=== PATIENT | female | born 1950 | race Caucasian/White ===

== ENCOUNTER 2020-03-05 10:32 | Outpatient (CLI) | payer MEDICARE, SELFPAY ==
[2020-03-05 11:03] LABS: INR 3.4
== END 2020-03-05 10:33 | disposition home or self-care (01) ==
PROVIDERS: PCP Physician Assistant; Visit Provider Physician Assistant
DX: I63.9 Cerebral infarction, unspecified (principal)
CPT/HCPCS: 36415; 85610

== ENCOUNTER 2020-05-02 15:09 | Emergency (ER) | payer MEDICARE, SELFPAY ==
[2020-05-02 15:40] VITALS: BP 152/91; PULSE 73; RESP 18; TEMP 37; O2SAT 90
--- NOTE | 2020-05-02 16:10 | ED.FEMALEGU ---
HPI - Female Genitourinary General Chief complaint: Urogenital-Female Stated complaint: Blood in urine Source: patient Mode of arrival: ambulatory Limitations: no limitations History of Present Illness HPI Narrative: 4 days ago pt noticed blood in her urine. She had been calling her pcp office, but had been unsucessful in reaching them. Yesterday she passed 2 dime size blood clots. She has no pain, no fevers, no discomfort no nausea. no dysuria, or other urinary sxs. Pt states it is painless. Onset (ago): day(s) Urinary symptoms: Hematuria Exacerbating factors: none Relieving factors: none Treatment prior to arrival: none Related Data Home Medications Medication Instructions Recorded Confirmed acetaminophen-codeine 1 tablet PO Q6-12H PRN 05/02/20 05/02/20 atenolol 25 mg PO DAILY 05/02/20 05/02/20 gabapentin 300 mg PO TID 05/02/20 05/02/20 montelukast 10 mg PO DAILY 05/02/20 05/02/20 omeprazole 20 mg PO DAILY 05/02/20 05/02/20 pravastatin 80 mg PO HS 05/02/20 05/02/20 warfarin 3.5 mg PO DAILY 05/02/20 05/02/20 Allergies Allergy/AdvReac Type Severity Reaction Status Date / Time No Known Allergies Allergy Verified 05/02/20 15:55 Review of Systems Review of Systems: All systems reviewed & are unremarkable except as noted in HPI and below Constitutional: Constitutional: Reports as per HPI and Reports no additional constitutional complaints Eyes: Eyes: Reports no additional eye complaints ENT: Reports system reviewed and no additional complaints, except as documented Cardiovascular: Cardiovascular: Reports no additional cardiovascular complaints Respiratory: Respiratory: Reports no additional respiratory complaints Gastrointestinal: Gastrointestinal: Reports no additional gastrointestinal complaints Genitourinary: Genitourinary: Denies abnormal vaginal bleeding, Reports hematuria, Denies nocturia, Denies genital lesions, Denies dysuria, Denies pelvic pain, Denies flank pain, Denies urinary incontinence and Denies vaginal discharge Musculoskeletal: Musculoskeletal: Reports no additional musculoskeletal complaints Integumentary/Breasts: Skin/Breast: Reports system reviewed and no additional complaints, except as docu Neurologic: Reports system reviewed and no additional complaints, except as documented Psychiatric: Psychiatric: Reports no additional psychiatric complaints Endocrine: Endocrine: Reports no additional endocrine complaints Hematologic/Lymphatic: Hematologic/Lymphatic: Reports no additional hematologic/lymphatic complaints Allergic/Immunologic: Allergic/Immunologic: Reports no additional allergic/immunologic complaints ON LICENSE OF [facility] Past Medical History Medical History (Updated 05/02/20 @ 17:56 by Patsy Langford MD) CVA (cerebral vascular accident) Lung cancer Status post chemoradiation Surgical History Surgical History (Updated 05/02/20 @ 16:14 by Patsy Langford MD) History of lobectomy of lung Family History Family History (Updated 05/02/20 @ 16:15 by Patsy Langford MD) Sibling No problems noted. Other Cerebrovascular accident Family history of arthritis Hypertension Social History Social History (Updated 05/02/20 @ 16:15 by Patsy Langford MD) Alcohol intake: never Substance use: never Exam Const: General: no acute distress and alert Nutritional Appearance: well nourished Orientation/consciousness: patient oriented x3 HENMT: Head: normal to inspection Eyes: General: appearance normal, both eyes and all related structures Conjunctivae: conjunctivae normal Pupils: Equal, round and reactive pupils present Neck: Neck: normal visual inspection Chest: Chest palpation & inspection: normal inspection of the chest Resp: Effort & Inspection: normal respiratory effort Auscultation: clear to auscultation bilaterally Cardio: Rate: regular rate Rhythm: regular rhythm GI: GI Palp: Yes Soft to palpation, No Tenderness to palpation p
[2020-05-02 16:42] LABS: Basophils Absolute Auto 0.04 K/mm3 (0.00-0.10); Basophils Percent Auto 0.6 % (0.0-1.0); Eosinophils Absolute Auto 0.14 K/mm3 (0.02-0.50); Eosinophils Percent Auto 1.9 % (1.0-6.0); Hematocrit 44.6 % (35.0-42.0); Hemoglobin 14.9 g/dL (11.7-13.8); Immature Granulocyte Absolute 0.01 K/mm3 (0.00-0.00); Immature Granulocyte Percent A 0.1 % (0.0-0.0); Lymphocytes Absolute Auto 1.96 K/mm3 (1.10-4.50); Mean Corpuscular HGB Conc 33.4 g/dL (32.0-36.0); Mean Corpuscular Hemoglobin 29.6 pg (27.0-31.0); Mean Corpuscular Volume 88.5 fL (78.0-102.0); Mean Platelet Volume 9.9 fl (9.2-11.8); Monocytes Absolute Auto 0.77 K/mm3 (0.10-0.90); Monocytes Percent Auto 10.6 % (2.0-11.0); Neutrophils Absolute Auto 4.4 K/mm3 (1.7-7.2); Neutrophils Percent Auto 59.8 % (50.0-70.0); Platelet Count Result 254 K/mm3 (150-420); Red Blood Count 5.04 M/mm3 (4.20-5.40); Red Cell Distribution Width 12.6 % (11.6-14.4); White Blood Count 7.3 K/mm3 (4.8-10.8)
[2020-05-02 16:47] LABS: Add Urine Microscopic? YES; Appearance Urine Turbid (Clear); Bilirubin Urine Negative (Negative); Blood Urine 3+ (Negative); Color Urine Amber (Yellow); Glucose Urine UA Trace (Negative); Ketones Urine Trace (Negative); Leukocyte Esterase Ur 1+ (Negative); Nitrate Urine Positive (Negative); Protein Urine 3+ (Negative)
[2020-05-02 16:50] LABS: RBC Urine >75 /hpf (0-2); WBC Urine 51-75 /hpf (0-3)
[2020-05-02 16:51] LABS: Bacteria Urine 4+ /hpf; Squamous Epithelial Cell Urine None seen /hpf (Few)
[2020-05-02 16:53] LABS: Prothrombin Time 41.3 Seconds (9.50-12.10)
[2020-05-02 17:00] LABS: Alanine Aminotransferase 43 U/L (14-59); Alkaline Phosphatase 71 U/L (46-116); Anion Gap 8 mmol/L (8-16); Aspartate Amino Transferase 42 U/L (15-37); Bilirubin,Total 0.2 mg/dL (0.00-1.00); Blood Urea Nitrogen 12 mg/dL (7-18); Calcium 8.9 mg/dL (8.5-10.1); Carbon Dioxide 29 mmol/L (21-32); Chloride 102 mmol/L (98-108); Estimated CRCL calculation 63 ml/min; Estimated Glomerular Filt Rate 57; Glucose 105 mg/dL (70-99); Osmolality Calculated 287 mOsm/kg (285-295); Potassium 3.7 mmol/L (3.5-5.1); Sodium 139 mmol/L (136-145); Total Protein 7.1 g/dL (6.4-8.2)
[2020-05-02 18:15] VITALS: PULSE 70; RESP 14; O2SAT 95
== END 2020-05-02 18:16 | disposition home or self-care (01) ==
PROVIDERS: Emergency Provider Emergency Medicine; PCP Physician Assistant
DX: N30.01 Acute cystitis with hematuria (principal)
CPT/HCPCS: 36415; 80053; 81001; 85025; 85610; 96365; 99283; 99284; J0696

== ENCOUNTER 2020-07-22 08:00 | Outpatient (RCR) | payer MEDICARE, SELFPAY ==
[2020-05-20 12:09] LABS: INR 3.1; Prothrombin Time 31.6 Seconds (9.64-11.0)
[2020-06-20 11:53] LABS: INR 3.9; Prothrombin Time 39.3 Seconds (9.50-12.10)
[2020-07-22 08:23] LABS: INR 3.1; Prothrombin Time 31.2 Seconds (9.50-12.10)
== END 2020-08-18 23:59 | disposition home or self-care (01) ==
LOC: CHSLAB 08:00
PROVIDERS: PCP Physician Assistant; Visit Provider Physician Assistant
DX: Z86.73 Personal history of transient ischemic attack (TIA), and cerebral infarction without residual deficits (principal)
CPT/HCPCS: 36415; 85610

== ENCOUNTER 2020-08-28 10:40 | Outpatient (RCR) | payer MEDICARE, SELFPAY ==
[2020-08-21 11:07] LABS: INR 4.3; Prothrombin Time 42.6 Seconds (9.50-12.10)
[2020-08-25 10:43] LABS: INR 1.7
[2020-08-28 11:25] LABS: INR 2.4; Prothrombin Time 24.6 Seconds (9.50-12.10)
== END 2020-11-19 23:59 | disposition home or self-care (01) ==
LOC: CHSLAB 10:40
PROVIDERS: PCP Physician Assistant; Visit Provider Physician Assistant
DX: Z86.73 Personal history of transient ischemic attack (TIA), and cerebral infarction without residual deficits (principal)
CPT/HCPCS: 36415; 85610

== ENCOUNTER 2020-11-21 09:32 | Outpatient (RCR) | payer MEDICARE, SELFPAY ==
[2020-11-21 10:14] LABS: INR 4.2; Prothrombin Time 41.9 Seconds (9.50-12.10)
== END 2021-02-19 23:59 | disposition home or self-care (01) ==
LOC: CHSLAB 09:32
PROVIDERS: PCP Physician Assistant; Visit Provider Physician Assistant
DX: Z86.73 Personal history of transient ischemic attack (TIA), and cerebral infarction without residual deficits (principal)
CPT/HCPCS: 36415; 85610

== ENCOUNTER 2020-11-27 10:32 | Outpatient (CLI) | payer MEDICARE, SELFPAY ==
[2020-11-27 10:53] LABS: Basophils Absolute Auto 0.06 K/mm3 (0.00-0.10); Basophils Percent Auto 1.1 % (0.0-1.0); Eosinophils Absolute Auto 0.14 K/mm3 (0.02-0.50); Eosinophils Percent Auto 2.6 % (1.0-6.0); Hematocrit 46.1 % (35.0-42.0); Immature Granulocyte Absolute 0.01 K/mm3 (0.00-0.00); Immature Granulocyte Percent A 0.2 % (0.0-0.0); Lymphocytes Absolute Auto 1.79 K/mm3 (1.10-4.50); Lymphocytes Percent Auto 33.3 % (18.0-42.0); Mean Corpuscular HGB Conc 32.5 g/dL (32.0-36.0); Mean Corpuscular Hemoglobin 29.4 pg (27.0-31.0); Mean Corpuscular Volume 90.4 fL (78.0-102.0); Mean Platelet Volume 9.8 fl (9.2-11.8); Monocytes Absolute Auto 0.55 K/mm3 (0.10-0.90); Monocytes Percent Auto 10.2 % (2.0-11.0); Neutrophils Absolute Auto 2.8 K/mm3 (1.7-7.2); Neutrophils Percent Auto 52.6 % (50.0-70.0); Platelet Count Result 233 K/mm3 (150-420); Red Cell Distribution Width 12.8 % (11.6-14.4); White Blood Count 5.4 K/mm3 (4.8-10.8)
[2020-11-27 11:22] LABS: INR 4.3; Prothrombin Time 42.9 Seconds (9.50-12.10)
[2020-11-27 12:46] LABS: Alanine Aminotransferase 53 U/L (14-59); Alkaline Phosphatase 67 U/L (46-116); Anion Gap 11 mmol/L (8-16); Aspartate Amino Transferase 48 U/L (15-37); Bilirubin,Total 0.5 mg/dL (0.00-1.00); Blood Urea Nitrogen 11 mg/dL (7-18); Calcium 8.7 mg/dL (8.5-10.1); Carbon Dioxide 28 mmol/L (21-32); Chloride 104 mmol/L (98-108); Cholesterol 200 mg/dL (0-200); Estimated Glomerular Filt Rate > 60; Glucose 108 mg/dL (70-99); HDL Direct 53 mg/dL (40-60); LDL Cholesterol Calculated 110 mg/dL (<130); Osmolality Calculated 296 mOsm/kg (285-295); Potassium 4.3 mmol/L (3.5-5.1); Sodium 143 mmol/L (136-145); Total Protein 6.3 g/dL (6.4-8.2); Triglycerides 186 mg/dL (0-150)
[2020-11-27 12:51] LABS: Thyroid Stimulating Hormone Reflex 0.95 u/IU/mL (0.36-3.74)
== END 2020-11-27 10:33 | disposition home or self-care (01) ==
PROVIDERS: PCP Physician Assistant; Visit Provider Physician Assistant
DX: I10 Essential (primary) hypertension (principal); R73.03 Prediabetes; E78.5 Hyperlipidemia, unspecified; Z68.38 Body mass index [BMI] 38.0-38.9, adult; Z86.73 Personal history of transient ischemic attack (TIA), and cerebral infarction without residual deficits
CPT/HCPCS: 36415; 80053; 80061; 83036; 84443; 85025; 85610

== ENCOUNTER 2020-12-11 09:55 | Outpatient (CLI) | payer MEDICARE, SELFPAY ==
--- NOTE | ~2020-12-11 | XR_ITS ---
EXAMINATION: XR hip LT min 2V DATE: 12/11/2020 10:23 INDICATION: Left hip pain. TECHNIQUE: 2 views of left hip were obtained. COMPARISON: None. FINDINGS: Bone alignment is normal. No fracture. Left hip joint space is normal. There is at least mi ld lumbar spondylosis. IMPRESSION: 1. Normal left hip. Reviewed, dictated and finalized at location B. IMPRESSION: 1. Normal left hip.
== END 2020-12-11 09:56 | disposition home or self-care (01) ==
LOC: CHSIMG 09:59
PROVIDERS: PCP Physician Assistant; Visit Provider Physician Assistant
DX: M25.552 Pain in left hip (principal)
CPT/HCPCS: 73502

== ENCOUNTER 2021-03-03 10:32 | Outpatient (RCR) | payer MEDICARE, SELFPAY ==
[2021-02-26 14:07] LABS: INR 4.3; Prothrombin Time 43.1 Seconds (9.50-12.10)
[2021-03-03 11:18] LABS: INR 4.3; Prothrombin Time 43.2 Seconds (9.50-12.10)
== END 2021-05-27 23:59 | disposition home or self-care (01) ==
LOC: CHSLAB 10:32
PROVIDERS: PCP Physician Assistant; Visit Provider Physician Assistant
DX: Z86.73 Personal history of transient ischemic attack (TIA), and cerebral infarction without residual deficits (principal)
CPT/HCPCS: 36415; 85610

== ENCOUNTER 2021-06-12 15:07 | Outpatient (CLI) | payer MEDICARE, SELFPAY ==
[2021-06-12 15:31] LABS: Basophils Absolute Auto 0.06 K/mm3 (0.00-0.10); Basophils Percent Auto 0.9 % (0.0-1.0); Eosinophils Absolute Auto 0.16 K/mm3 (0.02-0.50); Eosinophils Percent Auto 2.5 % (1.0-6.0); Hematocrit 46.4 % (35.0-42.0); Hemoglobin 15.5 g/dL (11.7-13.8); Immature Granulocyte Absolute 0.01 K/mm3 (0.00-0.00); Immature Granulocyte Percent A 0.2 % (0.0-0.0); Lymphocytes Absolute Auto 1.91 K/mm3 (1.10-4.50); Lymphocytes Percent Auto 29.4 % (18.0-42.0); Mean Corpuscular HGB Conc 33.4 g/dL (32.0-36.0); Mean Corpuscular Hemoglobin 30.2 pg (27.0-31.0); Mean Corpuscular Volume 90.3 fL (78.0-102.0); Mean Platelet Volume 10.2 fl (9.2-11.8); Monocytes Percent Auto 10.8 % (2.0-11.0); Neutrophils Absolute Auto 3.7 K/mm3 (1.7-7.2); Neutrophils Percent Auto 56.2 % (50.0-70.0); Platelet Count Result 258 K/mm3 (150-420); Red Blood Count 5.14 M/mm3 (4.20-5.40); Red Cell Distribution Width 12.7 % (11.6-14.4); White Blood Count 6.5 K/mm3 (4.8-10.8)
[2021-06-12 15:46] LABS: Hemoglobin A1C 5.9 % (<5.7)
[2021-06-12 15:54] LABS: Partial Thromboplastin Time 57.9 SEC (23.90-30.70); Prothrombin Time 49.3 Seconds (9.50-12.10)
[2021-06-12 16:44] LABS: Alanine Aminotransferase 49 U/L (14-59); Alkaline Phosphatase 70 U/L (46-116); Anion Gap 9 mmol/L (8-16); Aspartate Amino Transferase 52 U/L (15-37); Bilirubin,Total 0.3 mg/dL (0.00-1.00); Blood Urea Nitrogen 13 mg/dL (7-18); Calcium 8.8 mg/dL (8.5-10.1); Carbon Dioxide 27 mmol/L (21-32); Chloride 103 mmol/L (98-108); Cholesterol 185 mg/dL (0-200); Estimated Glomerular Filt Rate > 60; Glucose 111 mg/dL (70-99); HDL Direct 51 mg/dL (40-60); LDL Cholesterol Calculated 81 mg/dL (<130); Osmolality Calculated 289 mOsm/kg (285-295); Potassium 4.1 mmol/L (3.5-5.1); Sodium 139 mmol/L (136-145); Total Protein 6.6 g/dL (6.4-8.2); Triglycerides 266 mg/dL (0-150)
[2021-06-12 16:51] LABS: RFT Charge Test YES; Rheumatoid Factor Screen Negative (Negative)
[2021-06-17 04:18] LABS: Anti Nuclear Antibody Pattern Nuclear, Speckled
== END 2021-06-12 15:08 | disposition home or self-care (01) ==
LOC: CHSLAB 15:10
PROVIDERS: PCP Physician Assistant; Visit Provider Physician Assistant
DX: M25.511 Pain in right shoulder (principal); Z86.73 Personal history of transient ischemic attack (TIA), and cerebral infarction without residual deficits; I10 Essential (primary) hypertension; R73.03 Prediabetes; E78.5 Hyperlipidemia, unspecified; Z79.01 Long term (current) use of anticoagulants
CPT/HCPCS: 36415; 80053; 80061; 83036; 85025; 85610; 85730; 86038; 86039; 86430; 86431

== ENCOUNTER 2021-07-08 12:38 | Outpatient (RCR) | payer MEDICARE, SELFPAY ==
[2021-07-08 13:26] LABS: INR 3.8; Prothrombin Time 37.7 Seconds (9.50-12.10)
== END 2021-10-06 23:59 | disposition home or self-care (01) ==
LOC: CHSLAB 12:38
PROVIDERS: PCP Physician Assistant; Visit Provider Physician Assistant
DX: Z79.01 Long term (current) use of anticoagulants (principal); Z51.81 Encounter for therapeutic drug level monitoring
CPT/HCPCS: 36415; 85610

== ENCOUNTER 2022-05-20 13:19 | Outpatient (RCR) | payer MEDICARE, SELFPAY ==
[2022-02-25 13:42] LABS: Basophils Absolute Auto 0.05 K/mm3 (0.00-0.10); Basophils Percent Auto 0.8 % (0.0-1.0); Eosinophils Absolute Auto 0.12 K/mm3 (0.02-0.50); Eosinophils Percent Auto 1.9 % (1.0-6.0); Hematocrit 45.5 % (35.0-42.0); Hemoglobin 15.1 g/dL (11.7-13.8); Immature Granulocyte Absolute 0.01 K/mm3 (0.00-0.00); Immature Granulocyte Percent A 0.2 % (0.0-0.0); Lymphocytes Absolute Auto 2.13 K/mm3 (1.10-4.50); Lymphocytes Percent Auto 34.2 % (18.0-42.0); Mean Corpuscular HGB Conc 33.2 g/dL (32.0-36.0); Mean Corpuscular Hemoglobin 30.3 pg (27.0-31.0); Mean Corpuscular Volume 91.2 fL (78.0-102.0); Mean Platelet Volume 10.2 fl (9.2-11.8); Monocytes Absolute Auto 0.75 K/mm3 (0.10-0.90); Neutrophils Absolute Auto 3.2 K/mm3 (1.7-7.2); Neutrophils Percent Auto 50.9 % (50.0-70.0); Platelet Count Result 249 K/mm3 (150-420); Red Blood Count 4.99 M/mm3 (4.20-5.40); Red Cell Distribution Width 13.2 % (11.6-14.4); White Blood Count 6.2 K/mm3 (4.8-10.8)
[2022-02-25 13:52] LABS: Hemoglobin A1C 5.8 % (<5.7)
[2022-02-25 13:59] LABS: Alanine Aminotransferase 32 U/L (14-59); Albumin Level 2.9 g/dL (3.4-5.0); Alkaline Phosphatase 65 U/L (46-116); Anion Gap 4 mmol/L (8-16); Aspartate Amino Transferase 31 U/L (15-37); Bilirubin,Total 0.3 mg/dL (0.00-1.00); Blood Urea Nitrogen 8 mg/dL (7-18); Calcium 8.7 mg/dL (8.5-10.1); Carbon Dioxide 31 mmol/L (21-32); Chloride 104 mmol/L (98-108); Cholesterol 184 mg/dL (0-200); Estimated Glomerular Filt Rate > 60; Glucose 105 mg/dL (70-99); HDL Direct 54 mg/dL (40-60); LDL Cholesterol Calculated 87 mg/dL (<130); Osmolality Calculated 286 mOsm/kg (285-295); Potassium 4.1 mmol/L (3.5-5.1); Sodium 139 mmol/L (136-145); Total Protein 6.9 g/dL (6.4-8.2); Triglycerides 217 mg/dL (0-150)
[2022-02-25 14:04] LABS: Partial Thromboplastin Time 66.3 SEC (23.90-30.70); Prothrombin Time 55.5 Seconds (9.50-12.10)
[2022-02-25 14:19] LABS: INR 5.8
[2022-02-25 14:22] LABS: Rheumatoid Factor Screen Negative (Negative)
[2022-03-01 10:07] LABS: INR 1.7; Prothrombin Time 17.4 Seconds (9.50-12.10)
[2022-03-02 17:56] LABS: Anti Nuclear Antibody Pattern Nuclear, Speckled
[2022-03-05 09:43] LABS: INR 2.7; Prothrombin Time 27.3 Seconds (9.50-12.10)
[2022-03-11 09:10] LABS: Prothrombin Time 30.3 Seconds (9.50-12.10)
[2022-05-20 13:49] LABS: INR 3.6; Prothrombin Time 35.3 Seconds (9.50-12.10)
== END 2022-05-26 23:59 | disposition home or self-care (01) ==
LOC: CHSLAB 13:19
PROVIDERS: PCP Physician Assistant; Visit Provider Physician Assistant
DX: Z86.73 Personal history of transient ischemic attack (TIA), and cerebral infarction without residual deficits (principal); Z79.01 Long term (current) use of anticoagulants; M25.511 Pain in right shoulder; E11.9 Type 2 diabetes mellitus without complications; I10 Essential (primary) hypertension; Z79.899 Other long term (current) drug therapy
CPT/HCPCS: 36415; 80053; 80061; 83036; 85025; 85610; 85730; 86038; 86039; 86430

== ENCOUNTER 2022-07-07 11:21 | Outpatient (CLI) | payer MEDICARE, SELFPAY ==
[2022-07-07 11:37] LABS: Hemoglobin 15.2 g/dL (11.7-13.8); Mean Corpuscular HGB Conc 32.3 g/dL (32.0-36.0); Mean Corpuscular Hemoglobin 29.7 pg (27.0-31.0); Mean Platelet Volume 10.2 fl (9.2-11.8); Platelet Count Result 243 K/mm3 (150-420); Red Blood Count 5.11 M/mm3 (4.20-5.40); Red Cell Distribution Width 12.7 % (11.6-14.4); White Blood Count 5.7 K/mm3 (4.8-10.8)
[2022-07-07 13:24] LABS: Alanine Aminotransferase 32 U/L (14-59); Alkaline Phosphatase 76 U/L (46-116); Anion Gap 7 mmol/L (8-16); Aspartate Amino Transferase 28 U/L (15-37); Bilirubin,Total 0.4 mg/dL (0.00-1.00); Blood Urea Nitrogen 14 mg/dL (7-18); Calcium 8.7 mg/dL (8.5-10.1); Carbon Dioxide 31 mmol/L (21-32); Chloride 102 mmol/L (98-108); Cholesterol 219 mg/dL (0-200); Estimated Glomerular Filt Rate > 60; Glucose 181 mg/dL (70-99); HDL Direct 54 mg/dL (40-60); LDL Cholesterol Calculated 125 mg/dL (<130); Osmolality Calculated 295 mOsm/kg (285-295); Sodium 140 mmol/L (136-145); Total Protein 6.6 g/dL (6.4-8.2); Triglycerides 202 mg/dL (0-150)
== END 2022-07-07 11:22 | disposition home or self-care (01) ==
LOC: CHSLAB 11:24
PROVIDERS: PCP Physician Assistant; Visit Provider Physician Assistant
DX: I10 Essential (primary) hypertension (principal)
CPT/HCPCS: 36415; 80053; 80061; 85027

== ENCOUNTER 2023-01-06 11:32 | Outpatient (RCR) | payer MEDICARE, SELFPAY ==
[2022-11-05 13:56] LABS: INR 3.5; Prothrombin Time 34.7 Seconds (9.50-12.10)
[2022-12-06 14:38] LABS: INR 4.3; Prothrombin Time 42.1 Seconds (9.50-12.10)
[2023-01-06 12:07] LABS: INR 4.2; Prothrombin Time 41.9 Seconds (9.50-12.10)
== END 2023-02-02 23:59 | disposition home or self-care (01) ==
LOC: CHSLAB 11:32
PROVIDERS: PCP Physician Assistant; Visit Provider Physician Assistant
DX: Z51.81 Encounter for therapeutic drug level monitoring (principal); Z86.73 Personal history of transient ischemic attack (TIA), and cerebral infarction without residual deficits
CPT/HCPCS: 36415; 85610

== ENCOUNTER 2023-04-11 13:48 | Outpatient (RCR) | payer MEDICARE, SELFPAY ==
[2023-04-11 14:22] LABS: Prothrombin Time 30.6 Seconds (9.50-12.10)
== END 2023-07-10 23:59 | disposition home or self-care (01) ==
LOC: CHSLAB 13:48
PROVIDERS: PCP Physician Assistant; Visit Provider Physician Assistant
DX: Z51.81 Encounter for therapeutic drug level monitoring (principal); Z79.899 Other long term (current) drug therapy
CPT/HCPCS: 36415; 85610

== ENCOUNTER 2023-05-02 16:32 | Outpatient (CLI) | payer MEDICARE, SELFPAY ==
[2023-05-02 16:47] LABS: Basophils Absolute Auto 0.06 K/mm3 (0.00-0.10); Basophils Percent Auto 0.9 % (0.0-1.0); Eosinophils Absolute Auto 0.14 K/mm3 (0.02-0.50); Eosinophils Percent Auto 2.2 % (1.0-6.0); Hemoglobin 15.6 g/dL (11.7-13.8); Immature Granulocyte Absolute 0.02 K/mm3 (0.00-0.00); Immature Granulocyte Percent A 0.3 % (0.0-0.0); Lymphocytes Absolute Auto 1.95 K/mm3 (1.10-4.50); Lymphocytes Percent Auto 30.2 % (18.0-42.0); Mean Corpuscular HGB Conc 33.2 g/dL (32.0-36.0); Mean Corpuscular Hemoglobin 30.2 pg (27.0-31.0); Mean Corpuscular Volume 90.9 fL (78.0-102.0); Monocytes Absolute Auto 0.61 K/mm3 (0.10-0.90); Monocytes Percent Auto 9.4 % (2.0-11.0); Neutrophils Absolute Auto 3.7 K/mm3 (1.7-7.2); Platelet Count Result 224 K/mm3 (150-420); Red Blood Count 5.17 M/mm3 (4.20-5.40); Red Cell Distribution Width 12.5 % (11.6-14.4); White Blood Count 6.5 K/mm3 (4.8-10.8)
[2023-05-02 16:57] LABS: Hemoglobin A1C 5.8 % (<5.7)
[2023-05-02 17:40] LABS: Alanine Aminotransferase 25 U/L (14-59); Alkaline Phosphatase 66 U/L (46-116); Anion Gap 8 mmol/L (8-16); Aspartate Amino Transferase 25 U/L (15-37); Bilirubin,Total 0.4 mg/dL (0.00-1.00); Blood Urea Nitrogen 10 mg/dL (7-18); Carbon Dioxide 30 mmol/L (21-32); Chloride 103 mmol/L (98-108); Cholesterol 193 mg/dL (0-200); Estimated Glomerular Filt Rate > 60; Glucose 116 mg/dL (70-99); HDL Direct 56 mg/dL (40-60); LDL Cholesterol Calculated 104 mg/dL (<130); Osmolality Calculated 292 mOsm/kg (285-295); Sodium 141 mmol/L (136-145); Total Protein 6.5 g/dL (6.4-8.2); Triglycerides 167 mg/dL (0-150)
== END 2023-05-02 16:33 | disposition home or self-care (01) ==
LOC: CHSLAB 16:35
PROVIDERS: PCP Physician Assistant; Visit Provider Physician Assistant
DX: I10 Essential (primary) hypertension (principal); R73.9 Hyperglycemia, unspecified
CPT/HCPCS: 36415; 80053; 80061; 83036; 85025

== ENCOUNTER 2023-08-18 12:58 | Outpatient (RCR) | payer MEDICARE, SELFPAY ==
[2023-08-18 13:38] LABS: INR 3.8; Prothrombin Time 38.2 Seconds (9.50-12.1)
== END 2023-11-16 23:59 | disposition home or self-care (01) ==
LOC: CHSLAB 12:58
PROVIDERS: PCP Physician Assistant; Visit Provider Physician Assistant
DX: Z51.81 Encounter for therapeutic drug level monitoring (principal); Z79.899 Other long term (current) drug therapy
CPT/HCPCS: 36415; 85610

== ENCOUNTER 2024-01-27 10:47 | Outpatient (CLI) | payer MEDICARE, SELFPAY ==
[2024-01-27 11:20] LABS: INR 4.2; Prothrombin Time 41.2 Seconds (9.50-12.1)
== END 2024-01-27 10:48 | disposition home or self-care (01) ==
PROVIDERS: PCP Physician Assistant; Visit Provider Family Medicine
DX: Z86.73 Personal history of transient ischemic attack (TIA), and cerebral infarction without residual deficits (principal)
CPT/HCPCS: 36415; 85610

== ENCOUNTER 2024-03-19 12:50 | Outpatient (RCR) | payer MEDICARE, SELFPAY ==
[2024-03-19 13:24] LABS: INR 2.9; Prothrombin Time 28.6 Seconds (9.50-12.1)
== END 2024-06-17 23:59 | disposition home or self-care (01) ==
LOC: CHSLAB 12:50
PROVIDERS: PCP Physician Assistant; Visit Provider Physician Assistant
DX: Z86.73 Personal history of transient ischemic attack (TIA), and cerebral infarction without residual deficits (principal)
CPT/HCPCS: 36415; 85610

== ENCOUNTER 2024-05-16 11:41 | Outpatient (CLI) | payer MEDICARE, SELFPAY ==
[2024-05-16 12:04] LABS: Hemoglobin 15.1 g/dL (11.7-13.8); Mean Corpuscular HGB Conc 32.8 g/dL (32-36); Mean Corpuscular Hemoglobin 29.3 pg (27.0-31.0); Mean Corpuscular Volume 89.3 fL (78.0-102.0); Mean Platelet Volume 9.9 fl (9.2-11.8); Platelet Count Result 238 K/mm3 (150-420); Red Blood Count 5.15 M/mm3 (4.20-5.40); Red Cell Distribution Width 12.6 % (11.6-14.4); White Blood Count 5.1 K/mm3 (4.8-10.8)
[2024-05-16 12:17] LABS: INR 2.8; Prothrombin Time 27.6 Seconds (9.50-12.1)
[2024-05-16 12:18] LABS: Hemoglobin A1C 5.1 % (<5.7)
[2024-05-16 12:42] LABS: Alanine Aminotransferase 22 U/L (14-59); Albumin Level 3.1 g/dL (3.4-5.0); Alkaline Phosphatase 62 U/L (46-116); Anion Gap 9 mmol/L (4-12); Aspartate Amino Transferase 19 U/L (15-37); Bilirubin,Total 0.4 mg/dL (0.00-1.00); Blood Urea Nitrogen 14 mg/dL (7-18); Calcium 8.5 mg/dL (8.5-10.1); Carbon Dioxide 28 mmol/L (21-32); Chloride 103 mmol/L (98-108); Cholesterol 171 mg/dL (0-200); Estimated Glomerular Filt Rate > 60; Glucose 110 mg/dL (70-99); HDL Direct 54 mg/dL (40-60); LDL Cholesterol Calculated 85 mg/dL (<130); Osmolality Calculated 291 mOsm/kg (285-295); Potassium 4.6 mmol/L (3.5-5.1); Sodium 140 mmol/L (136-145); Total Protein 6.1 g/dL (6.4-8.2); Triglycerides 161 mg/dL (0-150)
--- OUTSIDE RECORDS SUMMARY | 2024-05-18 00:06 | XMS_ITS | Continuity of Care Document ---
[facility] Address [address] [place] [address] Care Team Providers Care Gaggerman Name Role Phone JUDAH DUQUE Primary Care Provider Assessment No assessment recorded. Plan of Treatment Reminders Order Date Submit Date Provider Last Modified By Organization Details Last Modified Time Details Appointments ANY 15 2024 10:15A M Judah Duque PA-C Not available Not available Not available Lab CBC 2024 025 [facility], [address] [place] [address], [id number], 05/16/2024 15:44:56 CMP, serum or plasma 2024 025 [facility], [address] [place] [address], [id number], 05/16/2024 15:44:56 lipid panel, serum 2024 025 [facility], [address] [place] [address], [id number], 05/16/2024 11:37:13 HbA1c (hemoglo bin A1c), blood 2024 025 [facility], [address] [place] [address], [id number], 05/16/2024 16:39:33 Referral None recorded . Procedures None recorded . Surgeries None recorded . Imaging None recorded . Medication Orders None recorded . Patient TargetsNo targets recorded. Patient Instructions Encounter Date Encounter Id Patient Instructions Last Modified By Organization Details Last Modified Time 05/16/2024 [id number] A healthy lifestyle: care instructions [email or web address] Not available 05/16/2024 11:36:54 learning about high blood pressure jnanney Not available 05/16/2024 11:36:54 Reason for Referral None Reported. Problems Name Problem SNOMED Code Status Onset Date Resolution Date Notes Provider Name and Address Organization Details Recorded Time History of cerebrovasc ular accident 693641551 Completed 201711/27/2020 Judah Duque PA-C Attn: Carolina ariza,[address] [facility], [place], [place], [address] [place] [address] 2, [place] - [facility] 1 10:44:37 Moderate chronic obstructive pulmonary disease 549178501 Active 2020 Judah Duque PA-C Attn: Carolina ariza,[address] [place], [place], [address] [place] [address] 2, [place] - [facility] 1 10:43:54 Essential hypertensio n 96557953 Active 2020 Judah Duque PA-C Attn: Carolina ariza,[address] [place], [place], [address] [place] [address] 2, [place] [facility] 1 10:44:08 Mild chronic obstructive pulmonary disease 294371424 Active 2020 Judah Duque PA-C Attn: Carolina ariza,[address] [place], [place], [address] [place] [address] 2, [place] - [facility] 1 10:44:56 Lumbar radiculopat hy 203914628 Active 2021 Judah Duque PA-C Attn: Carolina ariza,[address] [place], [place], [address] [place] [address] 2, [place] - [facility] 2 15:22:20 Problem Notes None recorded. Procedures Surgical History Date Name Laterality Status Provider Name and Address Organization Details Recorded Time 04/25/19 19 Date of Last Mammogram completed Isamar Esquivel [place] - [facility] 11/30/2021 14:51:56 04/25/19 18 colonoscopy completed Mary Chavis [place] [facility] 05/09/2020 10:16:55 Appendectomy completed Keyonan Fierro [place] [facility] 11/16/2017 12:02:02 Tubal Ligation completed Keyonna Fierro [place] [facility] 11/16/2017 12:02:08 Imaging Results None recorded. Procedure Notes None recorded. Medical Equipment None Reported. Allergies No known drug allergies Medications Name Sig Start Date Stop Date Status Note LastModified by Organization Details LastModified Time Tylenol-Cod eine #4 300 mg-60 mg tablet Take 1 tablet every 6 hours by oral route for 30 days. 03/12 completed Not Available Not Available Not Available gabapentin 600 mg tablet TAKE 1 TABLET BY MOUTH THREE TIMES A DAY active Not Available Not Available No t Available hydrocodone 5 mg-acetamin ophen 325 mg tablet take 1 tablet twice daily 11/16 completed Not Available Not Available Not Available atenolol 25 mg tablet 11/16 completed Not Available Not Available Not Available acetaminoph en 300 mg-codeine 30 mg tablet Take 1 tablet by mouth three times daily as needed 2024 active Not Available Not Available Not Avai lable tramadol 50 mg tablet Take 1 tablet every 8 hours by oral route for 30 days. 06/21 completed Not Available Not Available Not Available Depo-Medrol 80 mg/mL suspension for injection Take 1 mL by injection route. 05/02 completed Not Available Not Available Not Available warfarin 4 mg tablet Take 1 tablet every day by oral route. 11/16 completed Not Available Not Available Not Available warfarin 3 mg tablet TAKE 1 TABLET BY MOUTH ONCE DAILY active Not Available Not Available No t Available pravastatin 80 mg tablet TAKE 1 TABLET BY MOUTH ONCE DAILY AT BEDTIME active Not Available Not Available No t Available gabapentin 800 mg tablet TAKE 1 TABLET BY MOUTH THREE TIMES DAILY active Not Available Not Available No t Available baclofen 10 mg tablet TAKE 1 TABLET BY MOUTH 4 TIMES DAILY NEEDED active Not Available Not Available No t Available cephalexin 500 mg capsule 11/27 completed Not Available Not Available Not Available gabapentin 300 mg capsule TAKE 1 CAPSULE BY MOUTH THREE TIMES A DAY 11/30 completed Not Available Not Available Not Available omeprazole 20 mg capsule,del ayed release TAKE 1 CAPSULE BY MOUTH ONCE DAILY active Not Available Not Available No t Available montelukast 10 mg tablet TAKE 1 TABLET BY MOUTH ONCE DAILY active Not Available Not Available No t Available gabapentin 100 mg capsule TAKE 1 CAPSULE BY MOUTH THREE TIMES A DAY 07/01 completed Not Available Not Available Not Available warfarin 1 mg tablet TAKE 1 TABLET BY MOUTH ONCE DAILY active Not Available Not Available No t Available albuterol sulfate HFA 90 mcg/actuati on aerosol inhaler Inhale 2 puffs 4 times a day by inhalatio n route as needed for 180 days. 09/26 completed Not Available Not Available Not Available atenolol 50 mg tablet TAKE 1 TABLET BY MOUTH ONCE DAILY active Not Available Not Available No t Available metronidazo le 1 % topical gel APPLY TO FACE DAILY DIRECTED active Not Available Not Available No t Available Vitals Date Recorded Body height Provider Name an d Address Organization Details Last Updated DateTime 05/16/2024 170.18 cm Mary Chavis MA [facility] 05/16/19 11:20:48 Date Recorded Body mass index (BMI) Body weight Provider Name and Address Organization Details Last Updated DateTime 05/16/2024 32.9 kg/m2 65527.4 g Mary Chavis MA [facility] 05/16/2024 11:22:23 Date Recorded Oxygen saturation Oxygen saturation in Arterial blood by Pulse oximetry Provider Name and Address Organization Details Last Updated DateTime 05/16/2024 98 % 98 % Mary Chavis MA [facility] 05/16/2024 11:25:04 Date Recorded Heart rate Provider Name an d Address Organization Details Last Updated DateTime 05/16/2024 70 /min Mary Chavis MA [facility] 05/16/19 11:25:07 Date Recorded Systolic blood pressure Diastolic blood pressure Provider Name and Address Organization Details Last Updated DateTime 05/16/2024 104 mm[Hg] 76 mm[Hg] Mary Chavis MA [facility] 05/16/2024 11:26:14 Social History Question Answer Notes LastModified by Organizat ion Details LastModified Time Tobacco Smoking Status Former Smoker NISH Marie, [facility] 11/16/2017 12:01:38 What Is Your Level Of Alcohol Consumption? None Information not available 05/09/2020 Are You Blind Or Do You Have Difficulty Seeing? No Information not available 11/27/2020 What Is Your Level Of Caffeine Consumption? Moderate Information not available 05/09/2020 How Much Tobacco Do You Chew? None Information not available 05/09/2020 In The 14 Days Before Symptom Onset, Have You Had Close Contact With A Laboratory-confir med COVID-19 While That Case Was Ill? No Information not available 11/27/2020 In The 14 Days Before Symptom Onset, Have You Had Close Contact With A Person Who Is Under Investigation For COVID-19 While That Person Was Ill? No Information not available 11/27/2020 Have You Been To An Area Known To Be High Risk For COVID-19? No Information not available 11/27/2020 Are You Currently Employed? No Information not available 11/27/2020 Are You Deaf Or Do You Have Serious Difficulty Hearing? No Information not available 11/27/2020 What Type Of Diet Are You Following? REGULAR Information not available 05/09/2020 Which Illicit Or Recreational Drugs Have You Used? None Information not available 05/09/2020 Do You Or Have You Ever Used E-cigarettes Or Vape? Never Used Electronic Cigarettes Information not available 05/09/2020 Are There Any Guns Present In Your Home? No Information not available 11/27/2020 Marital Status Single Informatio n not available 05/09/2020 What Was The Date Of Your Most Recent Tobacco Screening? 05/16/2024 Information not available 05/16/2024 What Is Your Relationship Status? Single Information not available 11/27/2020 Do You Use Your Seat Belt Or Car Seat Routinely? Yes Information not available 11/27/2020 Do You Have Smoke And Carbon Monoxide Detectors In Your Home? Yes Information not available 11/27/2020 Are You Passively Exposed To Smoke? No Information no t available 11/27/2020 Do You Or Have You Ever Used Smokeless Tobacco? Never Used Smokeless Tobacco Information not available 05/09/2020 How Much Tobacco Do You Smoke? 2 PPD Information not available 11/16/2017 General Stress Level Low Information not available 05/09/2020 Do You Feel Stressed (tense, Restless, Nervous, Or Anxious, Or Unable To Sleep At Night)? [id number] Information not available 11/27/2020 Do You Use Any Illicit Or Recreational Drugs? No Information not available 11/27/2020 Has Tobacco Cessation Counseling Been Provided? No Information not available 06/12/2021 On What Date Was Tobacco Cessation Counseling Provided? 05/16/2024 Information not available 05/16/2024 How Many Years Have You Smoked Tobacco? 45 Information not available 11/16/2017 Do You Or Have You Ever Used Any Other Forms Of Tobacco Or Nicotine? No Information not available 06/12/2021 Sex: Female Functional Status Question Answer Note LastModified by Organization D etails LastModified Time Are you able to care for yourself? Yes Information n ot available 11/27/2020 Mental Status None recorded. Family History Relationship Description Onset Age of this Age Resolved Age Notes LastModified by Organization Details LastModified Time Mother Blood coagulation disorder [email or web address] Not available 10/24 11:59:54 Mother Malignant tumor of breast [email or web address] Not available 10/24 12:00:05 Mother Disorder of thyroid gland [email or web address] Not available 10/24 12:00:34 Mother Heart disease [email or web address] Not available 10/24 12:00:55 Mother Hypercholest erolemia [email or web address] Not available 10/24 12:01:12 Mother Hypertensive disorder [email or web address] Not available 10/24 12:01:23 Mother Kidney disease [email or web address] Not available 10/24 12:01:35 Father Cerebrovascu lar accident [email or web address] Not available 0 11/16/2017 12:00:22 Father Heart disease [email or web address] Not available 10/24 12:00:55 Brother Heart disease [email or web address] Not available 10/24 12:00:55 Brother Yash alexander [email or web address] Not available 10/24 12:01:12 Medical History Condition Response Acid Reflux (GERD) Y High Blood Pressure Y Cancer Y Stroke Y Allergies Y High Cholesterol Y Gynecological History Statement/Question Response Date of Last Mammogram 04/25/2018 Most Recent Mammogram Obstetrics History GPAL:G 0 P 0 0 0 0 Immunizations Vaccine Type Date Status Note Provider Nam e and Address Organization Details Recorded Time Influenza, split virus, quadrivalent, preservative 9 completed Not Available [facility] 12/08/2022 11:09:47 Influenza, split virus, quadrivalent, preservative 0 completed Not Available [facility] 12/08/2022 11:09:47 Influenza, split virus, quadrivalent, preservative 1 completed Tanika Titus [place], [place] [facility] 01/02/2021 12:25:24 zoster recombinant 2 completed NISH Resendiz, [place] [facility] 12/08/2022 09:44:26 influenza, intradermal, quadrivalent, preservative free 2 completed Not Available [facility] 12/08/2022 11:09:47 zoster recombinant 2 [place] NISH [place] [facility] 12/08/2022 09:44:26 COVID-19, mRNA, LNP-S, bivalent, PF, 50 mcg/0.5 mL or 25mcg/0.25 mL dose 2 [place] NISH [place] [facility] 12/08/2022 09:44:27 Influenza, high-dose, quadrivalent, PF 2 [place] [facility] 12/08/2022 09:44:27 Influenza, high-dose, quadrivalent, PF 0 [place] [facility] 12/08/2022 09:44:27 pneumococcal polysaccharide PPV23 9 [place] [facility] 12/08/2022 09:44:27 pneumococcal polysaccharide PPV23 3 [place] [facility] 12/08/2022 09:44:27 influenza, unspecified formulation 6 completed [place] [facility] 12/08/2022 09:44:27 Tdap 3 [place] [facility] 12/08/2022 09:44:27 Pneumococcal conjugate PCV 13 8 completed [place] [facility] 12/08/2022 09:44:27 Pneumococcal conjugate PCV 13 5 [place] [facility] 12/08/2022 09:44:27 Influenza, high-dose, trivalent, PF 9 [place] [facility] 12/08/2022 09:44:27 Influenza, high-dose, trivalent, PF 8 [place] [facility] 12/08/2022 09:44:27 Influenza, split virus, trivalent, preservative 1 [place] [facility] 12/08/2022 09:44:27 Influenza, split virus, trivalent, preservative 3 [place] [facility] 12/08/2022 09:44:27 Influenza, split virus, trivalent, PF 7 [place] [facility] 12/08/2022 09:44:27 Influenza, split virus, trivalent, PF 5 completed [place] [facility] 12/08/2022 09:44:27 Influenza, split virus, trivalent, PF 5 completed [place] [facility] 12/08/2022 09:44:27 Hep A, adult 0 completed [place] [facility] 12/08/2022 09:44:27 Hep A, adult 0 completed [place] [facility] 12/08/2022 09:44:27 Influenza, split virus, quadrivalent, PF 6 completed [place] [facility] 12/08/2022 09:44:27 Influenza, split virus, quadrivalent, PF 9 completed [place] [facility] 12/08/2022 09:44:27 Influenza, split virus, quadrivalent, PF 8 completed [place] [facility] 12/08/2022 09:44:27 Influenza, split virus, quadrivalent, preservative 3 completed [place] [facility] 01/17/2023 15:34:39 COVID-19, mRNA, LNP-S, PF, 100 mcg/0.5mL dose or 50 mcg/0.25mL dose 3 completed NISH [place] [facility] 01/17/2023 15:35:32 Influenza, split virus, trivalent, PF 4 completed [place] [facility] 01/25/2024 12:47:33 COVID-19, mRNA, LNP-S, PF, 50 mcg/0.5 mL 4 completed [place] [facility] 01/27/2024 11:29:50 COVID-19, mRNA, LNP-S, PF, 100 mcg/0.5mL dose or 50 mcg/0.25mL dose 1 completed [place] [facility] 07/07/2020 15:53:28 COVID-19, mRNA, LNP-S, PF, 100 mcg/0.5mL dose or 50 mcg/0.25mL dose 1 completed V[place] [facility] 08/04/2020 17:09:54 COVID-19, mRNA, LNP-S, PF, 100 mcg/0.5mL dose or 50 mcg/0.25mL dose 1 completed [place] [facility] 03/17/2021 12:07:44 Past Encounters Encounter ID Performer Location Encounter Start Date Encounter Closed Date Diagnosis/Indication Diagnosis SNOMED-CT Code Diagnosis ICD10 Code Diagnosis Note [id number] Judah Duque PA-C [facility] [address] [place] [address] 05/16/2024 10:55:35 05/16/2024 11:38:07 Lumbar radiculopathy 912006042 M54.16 History of cerebrovascular accident 589691699 Z86.73 Overweight 955077247 E66 .3 Essential hypertension 60907279 I10 Health Concerns Section Related Observation LastModified by Organization Detai ls LastModified Time None Recorded Concern Status LastModified by Organization Details LastModified Time None Recorded Payers Encounter Date Sequence Insurance Name Policy Number Policy Huggins Covered Member ID Huggins Member ID Guarantor Name 05/16/2024 1 [facility] (MEDICARE REPLACEMENT/A DVANTAGE - HMO) [id number] Mlevi Mascorro [id number] Melvi Mascorro Notes Date Note Type Note Provider Name and Address Organization Details Recorded Time 05/16/2024 text/html 3 month vs control...all is well... Judah Duque PA-C Attn: Accounting,[address] [facility], [place], [address], [facility] 05/16/2024 11:38:03 OBGyn Episode No OBEpisode recorded.
--- OUTSIDE RECORDS SUMMARY | 2024-05-18 00:06 | XMS_ITS | Data Portability ---
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 Plan of Treatment Reminders Order Date Submit Date Provider Last Modified By Organization Details Last Modified Time Details Appointments ANY 15 2024 10:15A Clara Duque PA-C Not available Not available Not available Lab drug screen, 14 drugs (detectim ed), urine 2022 023 [facility], [address] [facility], [facility] [address], [address], 12/15/2022 15:11:30 CBC 2023 024 [facility], [address] [facility], [facility] 2, [place], [address], 05/02/2023 23:23:31 CMP, serum or plasma 2023 024 [facility], [facility], [facility] 2, [place], [address], 05/02/2023 23:23:31 lipid panel, serum 2023 024 [facility], [address] [facility], [facility] 2, [place], [address], 05/02/2023 23:23:31 HbA1c (hemoglob in A1c), blood 2023 024 [facility], [address] [facility], [facility] 2, [place], [address], 05/02/2023 23:23:31 CBC 2024 025 [facility], [address] [place] [address] 2, [place], [address], 05/16/2024 15:44:56 CMP, serum or plasma 2024 025 [facility], [address] [place] [address] 2, [place], [address], 05/16/2024 15:44:56 lipid panel, serum 2024 025 [facility], [address] [place] [address] 2, [place], [address], 05/16/2024 11:37:13 HbA1c (hemoglob in A1c), blood 2024 025 [facility], [address] [place] [address], [place], [address], 05/16/2024 16:39:33 Referral None recorded. Procedures None recorded. Surgeries None recorded. Imaging None recorded. Medication Orders gabapenti n 800 mg tablet 2023 024 [facility], [address] [place] [address], [address], 05/02/2023 17:06:23 acetamino phen 300 mg-codein e 30 mg tablet 2023 024 [facility], [address] [place] [address], [address], 05/02/2023 17:06:25 pravastat in 80 mg tablet 2023 024 [facility] [address], [address] [place] [address], [address], 05/02/2023 17:06:22 acetamino phen 300 mg-codein e 30 mg tablet 2023 024 [facility], [address] [place], [address], 01/27/2024 15:41:48 Patient TargetsNo targets recorded. Patient Instructions Encounter Date Encounter Id Patient Instructions Last Modified By Organization Details Last Modified Time 12/08/2022 [id number] learning about high blood pressure jnanney Not available 12/08/2022 11:39:24 05/02/2023 [id number] A healthy lifestyle: care instructions jnanney Not available 05/02/2023 17:07:05 09/27/2023 [id number] A healthy lifestyle: care instructions jnanney Not available 09/27/2023 12:14:15 learning about high blood pressure jnanney Not available 09/27/2023 12:14:15 01/27/2024 [id number] A healthy lifestyle: care instructions jnanney Not available 01/27/2024 15:41:42 learning about high blood pressure jnanney Not available 01/27/2024 15:41:42 05/16/2024 [id number] A healthy lifestyle: care instructions jnanney Not available 05/16/2024 11:36:54 learning about high blood pressure jnanney Not available 05/16/2024 11:36:54 Reason for Referral None Reported. Results Created Date Observation Date Name Description Value Unit Range Abnormal Flag Note LastModifiedBy Organization Detail LastModifiedTime 12/09/1912/15/2022 COMPL IANCE DRUG MANSOOR SIS, UR summary report (summary) FINAL ===== ===== ===== ===== ===== ===== ===== ===== ===== ===== ===== ===== ===== === TOXAS SURE COMP DRUG MANSOOR SIS,U R ===== ===== ===== ===== ===== ===== ===== ===== ===== ===== ===== ===== ===== === Test Resul t Flag Units Drug Prese nt and Decla red for Presc ripti on Verif icati on Codei ne >3225 8 EXPEC JAMES ng/mg creat Morph ine 4165 EXPEC JAMES ng/mg creat Normo rphin e 1681 EXPEC JAMES ng/mg creat Sourc es of codei ne inclu de sched uled presc ripti on medic ation s; morph ine is an expec james metab olite of codei ne. Other sourc es of morph ine inclu de sched uled presc ripti on medic ation s or as a metab olite of heroi n. Normo rphin e is an expec james metab olite of morph ine. Gabap entin PRESE NT EXPEC JAMES Baclo fen PRESE NT EXPEC JAMES Aceta minop hen PRESE NT EXPEC JAMES Ateno lol PRESE NT EXPEC JAMES ===== ===== ===== ===== ===== ===== ===== ===== ===== ===== ===== ===== ===== === Test Resul t Flag Units Ref Range Creat inine 31 mg/dL >=20 ===== ===== ===== ===== ===== ===== ===== ===== ===== ===== ===== ===== ===== === Decla red Medic ation s: The cristal ing and inter preta tion on this repor t are based on the follo wing decla red medic ation s. Unexp ected resul ts may arise from inacc uraci es in the decla red medic ation s. Not e: The testi ng scope of this panel inclu graham these medic ation s: Ateno lol Baclo fen Codei ne (Acet amino phen- Codei ne) Gabap entin Not e: The testi ng scope of this panel does not inclu de small to moder ate amoun ts of these repor james medic ation s: Aceta minop hen (Acet amino phen- Codei ne) Not e: The testi ng scope of this panel does not inclu de follo wing repor james medic ation s: Albut justino Methy lpred nisol one (Depo -Medr ol) Veto zulma t Omepr azole Prava stati n Warfa rin ===== ===== ===== ===== ===== ===== ===== ===== ===== ===== ===== ===== ===== === For clini luana consu ltati on, pleas e call [phone]. ===== ===== ===== ===== ===== ===== ===== ===== ===== ===== ===== ===== ===== === Not Available [facility] ([facility]) [address] [facility], [place], [address], 12/15/2022 15:11:30 12/09/19 23 12/15/2022 COMPL IANCE DRUG MANSOOR SIS, UR pdf . Not Available [facility] ([facility]) [address] [facility], [place], [address], 12/15/2022 15:11:30 08/18/19 24 08/18/2023 INR, blood PT/INR Not Available [address], [place], [address], 08/18/2023 16:46:39 Result Notes None recorded. Problems Name Problem SNOMED Code Status Onset Date Resolution Date Notes Provider Name and Address Organization Details Recorded Time History of cerebrovasc ular accident 522083788 Completed 201711/27/2020 Judah Duque PA-C Attn: Carolina ariza,[address] [facility], [place], [address], [facility] 10:44:37 Moderate chronic obstructive pulmonary disease 397997090 Active 2020 Judah Duque PA-C Attn: Carolina ariza[address] [facility], [place], [address], [facility] 10:43:54 Essential hypertensio n 19041281 Active 2020 Judah Duque PA-C Attn: Carolina ariza,[address] [facility], [place], [address], [facility] 1 10:44:08 Mild chronic obstructive pulmonary disease 521793805 Active 2020 Judah Duque PA-C Attn: Carolina ariza,[address] [facility], [place], [address], [facility] 1 10:44:56 Lumbar radiculopat hy 089610840 Active 2021 Judah Duque PA-C Attn: Carolina ariza,[address] [facility], [place], [address], [facility] 15:22:20 Problem Notes None recorded. Procedures Surgical History Date Name Laterality Status Provider Name and Address Organization Details Recorded Time 04/25/19 19 Date of Last Mammogram completed Isamar Esquivel MA [facility] 11/30/2021 14:51:56 04/25/19 18 colonoscopy completed Mary Chavis MA [facility] 05/09/2020 10:16:55 Appendectomy completed Keyonna Fierro MA [facility] 11/16/2017 12:02:02 Tubal Ligation completed Keyonna Fierro MA [facility] 11/16/2017 12:02:08 Imaging Results None recorded. Procedure [...] d Address Organization Details Last Updated DateTime 12/08/2022 170.18 cm Kayce Butler MA [facility] 12/08 11:18:41 Date Recorded Body mass index (BMI) Body weight Provider Name and Address Organization Details Last Updated DateTime 12/08/2022 35.3 kg/m2 197758.08 g Kayce Butler MA [facility] 12/08/2022 11:18:49 Date Recorded Respiratory rate Provider Name a nd Address Organization Details Last Updated DateTime 12/08/2022 16 /min Kayce Butler MA [facility] 12/08/2022 11:20:25 Date Recorded Oxygen saturation Oxygen saturation in Arterial blood by Pulse oximetry Provider Name and Address Organization Details Last Updated DateTime 12/08/2022 96 % 96 % Kayce Butler MA [facility] 12/08/2022 11:20:36 Date Recorded Heart rate Provider Name an d Address Organization Details Last Updated DateTime 12/08/2022 60 /min Kayce Butler MA [facility] 12/08 11:20:37 Date Recorded Body height Provider Name an d Address Organization Details Last Updated DateTime 05/02/2023 170.18 cm Mary Chavis MA [facility] 05/02/19 16:42:25 Date Recorded Body mass index (BMI) Provider Name and Address Organization Details Last Updated DateTime 05/02/2023 34.9 kg/m2 Mary Chavis MA [facility] 05/02/19 16:43:50 Date Recorded Body weight Provider Name an d Address Organization Details Last Updated DateTime 05/02/2023 402933.1 g Mary Chavis MA [facility] 05/02/19 16:43:51 Date Recorded Oxygen saturation Oxygen saturation in Arterial blood by Pulse oximetry Provider Name and Address Organization Details Last Updated DateTime 05/02/2023 98 % 98 % Mary Chavis MA [facility] 05/02/2023 16:47:50 Date Recorded Heart rate Provider Name an d Address Organization Details Last Updated DateTime 05/02/2023 54 /min Mary Chavis MA [facility] 05/02/19 16:47:53 Date Recorded Body height Provider Name an d Address Organization Details Last Updated DateTime 09/27/2023 170.18 cm Tia Rodriguez MA [facility] 09/27/19 11:54:21 Date Recorded Oxygen saturation Oxygen saturation in Arterial blood by Pulse oximetry Provider Name and Address Organization Details Last Updated DateTime 09/27/2023 96 % 96 % NISH Rico [facility] 09/27/2023 11:57:13 Date Recorded Heart rate Provider Name an d Address Organization Details Last Updated DateTime 09/27/2023 61 /min Tia Rodriguez MA [facility] 09/27/19 11:57:16 Date Recorded Body mass index (BMI) Body weight Provider Name and Address Organization Details Last Updated DateTime 09/27/2023 35.4 kg/m2 353687.88 g Tia Rodriguez MA [facility] 09/27/2023 11:57:23 Date Recorded Body height Provider Name an d Address Organization Details Last Updated DateTime 01/27/2024 170.18 cm Tia Rodriguez MA [facility] 01/27/20 15:16:43 Date Recorded Body mass index (BMI) Body weight Provider Name and Address Organization Details Last Updated DateTime 01/27/2024 33.8 kg/m2 17869.95 g Tia Rodriguez MA [facility] 01/27/2024 15:21:42 Date Recorded Oxygen saturation Oxygen saturation in Arterial blood by Pulse oximetry Provider Name and Address Organization Details Last Updated DateTime 01/27/2024 96 % 96 % Tia Rodriguez MA [facility] 01/27/2024 15:23:19 Date Recorded Heart rate Provider Name an d Address Organization Details Last Updated DateTime 01/27/2024 73 /min Tia Rodriguez MA [facility] 01/27/20 15:23:22 Date Recorded Body height Provider Name an d Address Organization Details Last Updated DateTime 05/16/2024 170.18 cm Mary Chavis MA [facility] 05/16/19 11:20:48 Date Recorded Body mass index (BMI) Body weight Provider Name and Address Organization Details Last Updated DateTime 05/16/2024 32.9 kg/m2 15716.4 g Mary Chavis MA [facility] 05/16/2024 11:22:23 Date Recorded Oxygen saturation Oxygen saturation in Arterial blood by Pulse oximetry Provider Name and Address Organization Details Last Updated DateTime 05/16/2024 98 % 98 % Mary Chavis MA [facility] 05/16/2024 11:25:04 Date Recorded Heart rate Provider Name an d Address Organization Details Last Updated DateTime 05/16/2024 70 /min Mary Chavis MA [facility] 05/16/19 11:25:07 Date Recorded Systolic blood pressure Diastolic blood pressure Provider Name and Address Organization Details Last Updated DateTime 12/08/2022 140 mm[Hg] 60 mm[Hg] Kayce Butler MA [facility] 12/08/2022 11:20:57 Date Recorded Systolic blood pressure Diastolic blood pressure Provider Name and Address Organization Details Last Updated DateTime 05/02/2023 164 mm[Hg] 83 mm[Hg] Mary Chavis MA [facility] 05/02/2023 16:47:47 Date Recorded Systolic blood pressure Diastolic blood pressure Provider Name and Address Organization Details Last Updated DateTime 09/27/2023 118 mm[Hg] 66 mm[Hg] Tia Rodriguez MA [facility] 09/27/2023 11:57:44 Date Recorded Systolic blood pressure Diastolic blood pressure Provider Name and Address Organization Details Last Updated DateTime 01/27/2024 114 mm[Hg] 75 mm[Hg] Tia Rodriguez MA [facility] 01/27/2024 15:23:44 Date Recorded Systolic blood pressure Diastolic blood pressure Provider Name and Address Organization Details Last Updated DateTime 05/16/2024 104 mm[Hg] 76 mm[Hg] Mary Chavis MA [facility] 05/16/2024 11:26:14 Social History Question Answer Notes LastModified by Organizat ion Details LastModified Time Tobacco Smoking Status Former Smoker NISH Marie, [facility] 11/16/2017 12:01:38 What Is Your Level Of [...] Anxious, Or Unable To Sleep At Night)? [id number] Information not available 11/27/2020 Do You Use [...] disease [email or web address] Not available 10/24 12:00:55 Brother Hypercholest erolemia [email or web address] Not available 10/24 12:01:12 Medical History Condition Response High Blood Pressure Y Acid Reflux (GERD) Y Cancer Y Stroke Y High Cholesterol Y Allergies Y Gynecological History Statement/Question Response Date of Last Mammogram 04/25/2018 Most Recent Mammogram Obstetrics History GPAL:G 0 P 0 0 0 0 Immunizations Vaccine Type Date Status Note Provider Nam e and Address Organization Details Recorded Time Influenza, split virus, quadrivalent, preservative 9 completed Not Available [facility] 12/08/2022 11:09:47 Influenza, split virus, quadrivalent, preservative 0 completed Not Available [facility] 12/08/2022 11:09:47 Influenza, split virus, quadrivalent, preservative 1 completed Tanika Titus [place], [place] [facility] 01/02/2021 12:25:24 zoster recombinant 2 completed NISH Resendiz, [place] [facility] 12/08/2022 09:44:26 influenza, intradermal, quadrivalent, preservative free 2 completed Not Available [facility] 12/08/2022 11:09:47 zoster recombinant 2 completed INSH Resend[place], [place] [facility] 12/08/2022 09:44:26 COVID-19, [...] 09:44:27 Influenza, high-dose, trivalent, PF 9 completed Mary Chavis [place], [place] [facility] 12/08/2022 09:44:27 Influenza, high-dose, [...] dose or 50 mcg/0.25mL dose 3 completed Mary Chavis [place] [facility] 01/17/2023 15:35:32 Influenza, split virus, trivalent, PF 4 completed NISH Resend[place], [place] [facility] 01/25/2024 12:47:33 COVID-19, mRNA, [...] SNOMED-CT Code Diagnosis ICD10 Code Diagnosis Note [id number] NISH Marie [facility] [address] [place] [address] 11/16/2017 11:54:35 11/16/2017 12:51:43 Screening for malignant neoplasm of breast 678879312 Z12.31 Screening for malignant neoplasm of colon 931411032 Z12.11 Essential hypertension 13995758 I10 Pain in ri ght hip joint 6399471803 45884 M25.551 Cerebrovas cular accident 408582685 I63.9 [id number] Judah Duque PA-C [facility] [address] [place] [address] 11/23/2017 10:25:58 11/23/2017 12:09:12 History of cerebrovascular accident 622730552 Z86.73 Essential hypertension 22445886 I10 [id number] Keyonna Fierro [facility] [address] [place] [address] 12/20/2017 10:48:06 12/20/2017 12:56:23 History of cerebrovascular accident 276352456 Z86.73 [id number] Chiquita Welch [facility] [address] [place] [address] 01/24/2018 09:55:06 01/24/2018 10:32:49 History of cerebrovascular accident 540031269 Z86.73 [id number] Chiquita Welch [facility] [address] [place] [address] 02/24/2018 09:50:40 02/27/2018 16:01:09 History of cerebrovascular accident 108016160 Z86.73 [id number] Keyonna Fierro [facility] [address] [place] [address] 03/27/2018 10:20:36 03/27/2018 11:23:25 History of cerebrovascular accident 457100096 Z86.73 [id number] Chiquita Welch [facility] [address] [place] [address] 05/01/2018 10:16:10 05/01/2018 11:46:31 History of cerebrovascular accident 088455885 Z86.73 [id number] Chiquita Welch [facility] [address] [place] [address] 05/26/2018 10:23:51 05/26/2018 11:54:36 History of cerebrovascular accident 654796280 Z86.73 [id number] Judah Duque PA-C [facility] [address] [place] [address] 05/29/2018 15:35:45 05/29/2018 16:39:52 Seasonal allergy 688148784 J30.2 Essential hypertension 19172877 I10 History of cerebrovascular accident 143645545 Z86.73 Gastroesop hageal reflux disease without esophagitis 216541780 K21.9 Lumbar radiculopathy 128 996824 M54.16 [id number] Chiquita Welch MA [facility] [address] [place] [address] 07/21/2018 09:45:00 07/21/2018 11:38:09 History of cerebrovascular accident 841846033 Z86.73 [id number] Keyonna Fierro MA [address] [address] 08/23/2018 10:15:13 08/23/2018 16:42:43 History of cerebrovascular accident 050550702 Z86.73 [id number] Keyonna Fierro [place] [address] [place] [address] 10/03/2018 10:01:23 10/03/2018 14:04:28 History of cerebrovascular accident 164870774 Z86.73 [id number] Judah Duque PA-C [facility] [address] [place] [address] 10/19/2018 14:58:02 10/19/2018 16:12:24 History of cerebrovascular accident 996138329 Z86.73 Malignant tumor of lung 467404243 C34.11 Hyperglycemia 60422947 R 73.9 [id number] Keyonna Fierro MA [facility] [address] [place] [address] 11/20/2018 10:17:33 11/20/2018 15:23:06 History of cerebrovascular accident 851726131 Z86.73 [id number] Keyonna Fierro MA [facility] [address] [place] [address] 12/21/2018 10:23:50 12/21/2018 13:27:26 History of cerebrovascular accident 358152089 Z86.73 [id number] Keyonna ParkernorbertoNISH solorio [facility] [address] [place] [address] 01/03/2019 10:16:36 01/03/2019 16:41:26 History of cerebrovascular accident 832065188 Z86.73 [facility] 41022997 E78.5 [id number] Keyonna Vadim [facility] [address] [place] [address] 02/06/2019 11:03:35 02/06/2019 14:13:56 History of cerebrovascular accident 877520442 Z86.73 [id number] Chiquita Yuri NISH [facility] [address] [place] [address] 03/08/2019 11:11:22 03/08/2019 15:16:01 History of cerebrovascular accident 104929171 Z86.73 [id number] Chiquita Yuri NISH [facility] [address] [place] [address] 03/19/2019 10:31:44 03/19/2019 12:49:11 History of cerebrovascular accident 072496821 Z86.73 [id number] Chiquitastephanie Welch NISH [facility] [address] [place] [address] 04/27/2019 10:58:34 04/27/2019 13:43:23 History of cerebrovascular accident 569274282 Z86.73 [id number] Chiquita Welch NISH [facility] [address] [place] [address] 05/02/2019 10:38:26 05/02/2019 11:28:07 History of cerebrovascular accident 596828026 Z86.73 [id number] Chiquitastephanie Welch NISH [facility] [address] [place] [address] 05/09/2019 10:31:16 05/09/2019 11:49:37 History of cerebrovascular accident 017784809 Z86.73 [id number] Chiquita Welch [facility] [address] [place] [address] 05/16/2019 09:50:50 05/16/2019 11:14:23 History of cerebrovascular accident 443275426 Z86.73 [id number] Keyonna Fierro [facility] [address] [place] [address] 06/21/2019 10:23:42 06/21/2019 12:24:16 CVA - cerebrovascular accident due to cerebral artery occlusion 049942428 I63.312 Cramp in lower limb 4499 35844 R25.2 Essential hypertension 17924940 I10 Lumbar radiculopathy 128 150607 M54.16 Seasonal allergy 9934752 04 J30.2 [id number] Mary Chavis MA [facility] [address] [place] [address] 07/30/2019 10:58:38 07/30/2019 12:21:06 Cerebrovascular accident 404625741 I63.9 [id number] Keyonna Fierro [facility] [address] [place] [address] 08/28/2019 10:15:20 08/29/2019 12:41:57 History of cerebrovascular accident 976016176 Z86.73 [id number] Mary Chavis MA [facility] [address] [place] [address] 10/12/2019 11:11:19 10/15/2019 08:19:27 History of cerebrovascular accident 614045138 Z86.73 [id number] Keyonna Fierro [facility] [address] [place] [address] 12/13/2019 10:08:51 12/13/2019 12:28:00 History of cerebrovascular accident 263945114 Z86.73 [id number] Judah Duque PA-C [facility] [address] [place] [address] 12/27/2019 10:02:36 12/27/2019 11:29:22 History of cerebrovascular accident 580205970 Z86.73 Essential hypertension 64648294 I10 Seasonal allergy 2823974 04 J30.2 Lumbar radiculopathy 128 582807 M54.16 [id number] Judah Duque PA-C [facility] [address] [place] [address] 05/09/2020 10:08:29 05/13/2020 06:17:15 History of cerebrovascular accident 705275535 Z86.73 Urinary tr act infectious disease 55117134 N10 Family his tory of malignant neoplasm of urinary bladder 093955257 Z80.52 Lumbar radiculopathy 128 159256 M54.16 [id number] MURIEL Lakhani [address] [facility] [place] [address] 07/07/2020 14:58:37 07/08/2020 10:28:02 Administration of SARS-CoV-2 antigen vaccine 671881682 Z23 [id number] Jihan Yeh LPN Jacob 14 IM [address] [facility] [place] [address] 08/04/2020 15:02:57 08/05/2020 13:12:38 Administration of SARS-CoV-2 antigen vaccine 857457537 Z23 [id number] NISH Resendiz [facility] [address] [place] [address] 11/27/2020 10:22:36 12/02/2020 10:13:58 Body mass index 30+ - obesity 961454099 Z68.38 Essential hypertension 59459697 I10 Moderate c hronic obstructive pulmonary disease 280667464 J41.0 History of cerebrovascular accident 948485486 Z86.73 Weakness of right leg 15 36515066 2236161 G83.11 [id number] Judah Duque PA-C [facility] [address] [place] [address] 12/31/2020 17:01:00 01/01/2021 13:41:13 Superficial laceration of thumb 132020800 S61.011A [id number] Mary Chavis MA [facility] [address] [place] [address] 03/17/2021 11:52:23 03/17/2021 12:05:14 Administration of SARS-CoV-2 mRNA vaccine 8029171979 Z23 [id number] OSVALDO Mo[facility]ica [facility] [address] [place] [address] 06/12/2021 14:54:06 06/12/2021 15:35:22 History of cerebrovascular accident 671839647 Z86.73 Lumbar radiculopathy 128 650972 M54.16 Pain of ri ght shoulder joint 4781279135 1701031 M25.739 [id number] OSVALDO Mo[facility] [address] [place] [address] 06/19/2021 10:52:27 06/19/2021 11:31:44 Essential hypertension 33000390 I10 Lumbar radiculopathy 128 484088 M54.16 Mild chron ic obstructive pulmonary disease 015637962 J40 Pain of ri ght shoulder joint 1762707241 0137390 M25.511 Anti-nucle ar factor detected 732066147 R76.8 [id number] OSVALDO Mo[facility] [address] [place] [address] 11/30/2021 14:38:07 11/30/2021 15:43:55 Allergic conjunctivitis [id number] H10.11 [id number] Judah Duque PA-C [facility] [address] [place] [address] 03/08/2022 15:14:45 03/08/2022 15:42:26 Lumbar radiculopathy 077291272 M54.16 Mild chron ic obstructive pulmonary disease 760298706 J40 Coronary arteriosclerosis 01367628 I25.10 [id number] OSVALDO [facility] [address] [place] [address] 07/07/2022 10:34:07 07/14/2022 11:04:49 Lumbar radiculopathy 609038865 M54.16 Essential hypertension 37836057 I10 Multiple skin tags 48787 7009 L91.8 Overweight 156916771 E66 .3 [id number] OSVALDO Mojica [address] [place] [address] 12/08/2022 11:08:27 12/09/2022 10:57:33 Long-term drug therapy 846000495 Z79.899 History of cerebrovascular accident 550203583 Z86.73 Essential hypertension 47155744 I10 [id number] Judah Duque PA-C [facility] [address] [place] [address] 05/02/2023 16:37:24 05/03/2023 11:59:29 Essential hypertension 39242121 I10 Lumbar radiculopathy 128 059779 M54.16 Overweight 077181037 E66 .3 History of cerebrovascular accident 801520369 Z86.73 [id number] Judah Duque PA-C [facility] [address] [place] [address] 09/27/2023 11:35:19 09/28/2023 12:38:50 Lumbar radiculopathy 957089414 M54.16 Moderate c hronic obstructive pulmonary disease 015871118 J41.0 Essential hypertension 78131400 I10 Overweight 881128628 E66 .3 [id number] Judah Duque PA-C [facility] [address] [place] [address] 01/27/2024 15:13:29 02/02/2024 13:09:12 Lumbar radiculopathy 556796873 M54.16 Essential hypertension 07590177 I10 Overweight 402958036 E66 .3 [id number] Judah Duque PA-C [facility] [address] [place] [address] 05/16/2024 10:55:35 05/16/2024 11:38:07 Lumbar radiculopathy 872808062 M54.16 History of cerebrovascular accident 363368075 Z86.73 Overweight 522515352 E66 .3 Essential hypertension 17466786 I10 Health Concerns Section Related Observation LastModified by Organization Detai ls LastModified Time None Recorded Concern Status LastModified by Organization Details LastModified Time None Recorded Advance Directives Directive None Recorded Payers Encounter Date Sequence Insurance Name Policy Number Policy Huggins Covered Member ID Huggins Member ID Guarantor Name 12/08/[address] [facility] (MEDICARE REPLACEMENT/A DVANTAGE - HMO) [id number] Melvi Mascorro [id number] Melvi Mascorro 05/02/[address] [facility] (MEDICARE REPLACEMENT/A DVANTAGE - HMO) [id number] Melvi Mascorro [id number] Melvi Mascorro 09/27/[address] [facility] (MEDICARE REPLACEMENT/A DVANTAGE - HMO) [id number] Melvi Mascorro [id number] Melvi Mascorro 01/27/[address] [facility] (MEDICARE REPLACEMENT/A DVANTAGE - HMO) [id number] Melvi Mascorro [id number] Melvi Mascorro 05/16/[address] [facility] (MEDICARE REPLACEMENT/A DVANTAGE - HMO) [id number] Melvi Mascorro [id number] Melvi Mascorro Notes Date Note Type Note Provider Name and Address Organization Details Recorded Time 12/08/2022 text/html 3 month check vs tylenol 3...things are well...hx of cva..has moved to [place] Judah Duque PA-C Attn: Accounting,[address] [facility], [place], [place], [address] [place] [address], [place] - [facility] 12/08/2022 11:40:30 05/02/2023 text/html 3 month vs controls all is well...needs labs Judah Duque PA-C Attn: [employer]ing,[address] [place], [place], [address] [place] [address], [place] - [facility] 05/02/2023 17:07:52 09/27/2023 text/html 3 month vs controls...also trouble with rt ear...wax? Judah Duque PA-C Attn: Accounting,[address] [facility], [place], [place], [address] [place] [address], [place] [facility] 09/27/2023 12:15:24 01/27/2024 text/html htn and lumbar radiculopathy...hx of cva..all is well Judah Duque PA-C Attn: Accounting,[address] [place], [place], [address] [place] [address], [place] [facility] 01/27/2024 15:42:11 05/16/2024 text/html 3 month vs control...all is well... Judah Duque PA-C Attn: Accounting,[address] [place], [place], [address] [place] [address], [place] [facility] 05/16/2024 11:38:03 OBGyn Episode No OBEpisode recorded.
== END 2024-05-16 11:42 | disposition home or self-care (01) ==
PROVIDERS: PCP Physician Assistant; Visit Provider Physician Assistant
DX: Z86.73 Personal history of transient ischemic attack (TIA), and cerebral infarction without residual deficits (principal); I10 Essential (primary) hypertension; R73.9 Hyperglycemia, unspecified
CPT/HCPCS: 36415; 80053; 80061; 83036; 85027; 85610

== ENCOUNTER 2024-08-21 16:44 | Outpatient (RCR) | payer MEDICARE, SELFPAY ==
[2024-06-21 10:47] LABS: INR 3.5
[2024-08-21 17:07] LABS: INR 3.2
== END 2024-09-19 23:59 | disposition home or self-care (01) ==
LOC: CHSLAB 16:44
PROVIDERS: PCP Physician Assistant; Visit Provider Physician Assistant
DX: Z86.73 Personal history of transient ischemic attack (TIA), and cerebral infarction without residual deficits (principal)
CPT/HCPCS: 36415; 85610

== ENCOUNTER 2024-12-13 13:58 | Outpatient (RCR) | payer MEDICARE, SELFPAY ==
[2024-10-12 13:57] LABS: INR 3.5; Prothrombin Time 34.0 Seconds (9.50-12.1)
[2024-10-31 13:24] LABS: INR 4.5; Prothrombin Time 42.8 Seconds (9.50-12.1)
[2024-11-05 12:43] LABS: INR 2.4; Prothrombin Time 24.1 Seconds (9.50-12.1)
[2024-12-01 15:16] LABS: INR 4.3; Prothrombin Time 41.3 Seconds (9.50-12.1)
[2024-12-13 14:39] LABS: INR 3.9; Prothrombin Time 38.0 Seconds (9.50-12.1)
== END 2025-01-10 23:59 | disposition home or self-care (01) ==
LOC: CHSLAB 13:58
PROVIDERS: PCP Physician Assistant; Visit Provider Physician Assistant
DX: Z86.73 Personal history of transient ischemic attack (TIA), and cerebral infarction without residual deficits (principal)
CPT/HCPCS: 36415; 85610

== ENCOUNTER 2025-03-15 15:57 | Emergency (ER) | payer MEDICARE, SELFPAY ==
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
[2025-03-15 15:57] VITALS: BP 155/69; PULSE 64; RESP 18; TEMP 36.8; O2SAT 94
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
--- OUTSIDE RECORDS SUMMARY | 2025-03-15 16:07 | XMS_ITS | Clinical Summary ---
Author Organization [facility] Address [address] [place] [address] Care Team Providers Care Elevator Operator Service Name Role Phone Jerry Duque Primary Care Provider [phone] Marco Robin MD Unavailable [phone] Allergies No known active allergies Medications omeprazole (PriLOSEC) 20 mg capsule Take 20 mg by mouth daily. Active atenolol (TENORMIN) 25 mg tablet Take 25 mg by mouth daily. Active warfarin (COUMADIN) 5 mg tablet Take 5 mg by mouth. Take as directed per After Visit Summary. Active pravastatin (PRAVACHOL) 80 mg tablet Take 80 mg by mouth daily. Active montelukast (SINGULAIR) 10 mg tablet Take 10 mg by mouth nightly. Active gabapentin (NEURONTIN) 300 mg capsule Take 300 mg by mouth 3 (three) times a day Active ezetimibe (ZETIA) 10 mg tablet Take 1 tablet (10 mg total) by mouth daily 30 tablet 11 01/29/2020 Active Active Problems Problem Noted Date Diagnosed Date Paroxysmal atrial fibrillation 01/28/2020 Assessment & Plan (01/28/2020 12:08 PM CDT): Patient has had no recognition of any persistent recurrent atrial fibrillation. She has had no major bleeding events and will continue with her current medical management. Current use of watermelon inspector anticoagulation 020 Bilateral carotid artery stenosis 01/28/2020 Assessment & Plan (01/28/2020 12:09 PM CDT): I plan to re-evaluate the patient's moderate carotid disease with more recent carotid duplex. She will continue with aggressive secondary risk factor modification we will relook at a new lipid profile if 1 has not been obtained in the last year. As you know her target LDL cholesterol is a value of 50 mg/dL or less. Essential hypertension 01/28/2020 Mixed hyperlipidemia 01/28/2020 Obesity 01/28/2020 H/O: stroke 01/28/2020 Surgical History Surgery Date Site/Laterality Comments LUNG REMOVAL, PARTIAL 03/23/2006 Right CHOLECYSTECTOMY BREAST IMPLANT REMOVAL 03/23/2006 Right APPENDECTOMY TUBAL LIGATION Medical History Medical History Date Comments Lung cancer, upper lobe (HCC) 03/23/2006 Hypertension CVA (cerebral vascular accident) (HCC) Hypercholesteremia GERD (gastroesophageal reflux disease) DJD (degenerative joint disease) Scarlet fever H/O breast implant Bilateral Atrial fibrillation (HCC) Carotid artery disease Family History Medical History Relation Name Comments Arrhythmia Father Heart disease Father Arrhythmia Mother Diabetes Mother Heart disease Mother Hyperlipidemia Mother Hypertension Mother Valvular heart disease Other Relation Name Status Comments Father Mother Other Social History Tobacco Use Types Packs/Day Years Used Date Smoking Tobacco: Former Smokeless Tobacco: Never Alcohol Use Standard Drinks/Week Comments No 0 (1 standard drink = 0.6 oz pur e alcohol) Comments Unknown Sex and Gender Information Value Date Recorded Sex Assigned at Not on file Legal Sex Female 12:12 AM [employer] Gender Identity Not on file Sexual Orientation Not on file Last Filed Vital Signs Vital Sign Reading Time Taken Comments Blood Pressure 142/80 01/28/2020 11:43 AM CDT Pulse 69 01/28/2020 11:43 AM CDT Temperature 36.9 C (98.5 F) 01/28/2020 11:43 AM CDT Respiratory Rate 14 01/28/2020 11:43 AM CDT Oxygen Saturation 95% 01/08/2019 12:09 PM CDT Inhaled Oxygen Concentration - - Weight 109.8 kg (242 lb) 01/28/2020 11:43 AM CDT Height 170.2 cm (5' 7) 01/28/2020 11:43 AM CDT Body Mass Index 37.9 01/28/2020 11:43 AM CDT Plan of Treatment Health Maintenance Due Date Last Done Comments Breast Cancer Screening-Mammogram 1952 Colon Cancer Screening-Colonoscopy 1950 Depression Screening 1952 Fall Risk Assessment 1950 Hepatitis C Screening 1950 Osteoporosis Screening-Bone Density Scan 1952 Hepatitis B Screening 1970 Well Visit 65+ 2017 DTaP/Tdap/Td Vaccine (2 - Td or Tdap) 07/26/2022 07/26/2012 Covid-19 Vaccine (2024-05 6 season) 2024 01/17/2023, 03/17/2021, 08/04/2020, Additional history exists Influenza Vaccine (#1) 2024 4, 01/17/2023, 12/30/2021, Additional history exists Pneumococcal vaccine 65+ Completed 019, 01/02/2018, 03/25/2015, Additional history exists Zoster Vaccine Completed 03/05/2022, 12/30/2021 Insurance MEDICARE [facility] Address: [address] [address] [place] [address] COMMERCIAL GENERIC [facility] MEDICARE [facility] Address: [address] [address] [place] [address] [facility] MEDICARE [facility] Address: [address] [address] [place] [address] Care Teams Elevator Operator Service Relationship Specialty Start Date End Date Jerry Duque PA [address] [place] [address] PCP - General 12/15/18 Marco Robin MD [address] [place] [address] Medical Oncologist/Solar Electric/Photovoltaic Installer Medical Oncology 12/14/19
--- OUTSIDE RECORDS SUMMARY | 2025-03-15 16:07 | XMS_ITS | Data Portability ---
Author Organization [facility]asaKingst[facility] Address [address] [place] [address] Care Team Providers Care Rug Inspector Name Role Phone JUDAH DUQUE Primary Care Provider [phone] Assessment No assessment recorded. Plan of Treatment Reminders Order Date Submit Date Provider Last Modified By Organization Details Last Modified Time Details Appointments None recorded. Lab CBC 2024 025 [facility], [address] [facility] [address], [address], 5 15:44:56 CMP, serum or plasma 2024 025 [facility], [address] [facility] [address], [address], 5 15:44:56 lipid panel, serum 2024 025 [email or web address] [facility], [address] [facility] [address], [place], [address], 5 12:35:03 HbA1c (hemoglobi n A1c), blood 2024 025 [facility], [address] [facility], [facility], [place], [address], 5 16:39:33 CBC 2023 024 [facility], [address] [facility], [facility] 2, [place], [address], 4 23:23:31 CMP, serum or plasma 2023 024 [facility], [address] [facility], [facility], [place], [address], 23:23:31 lipid panel, serum 2023 024 [facility], [address] [facility], [facility], [place], [address], 23:23:31 HbA1c (hemoglobi n A1c), blood 2023 024 [place] [facility] [facility], [address] [facility], [facility], [place], [address], 23:23:31 Referral None recorded. Procedures None recorded. Surgeries None recorded. Imaging None recorded. Medication Orders acetaminop hen 300 mg-codeine 30 mg tablet 2023 [facility] [place], [address], 15:41:48 gabapentin 800 mg tablet 2023 [facility] [address] [place], [address], 4 17:06:23 acetaminop hen 300 mg-codeine 30 mg tablet 2023 [facility] [address] [place], [address], 4 17:06:25 pravastati n 80 mg tablet 2023 024 [facility] [address] [place], [address], 4 17:06:22 Patient TargetsNo targets recorded. Patient Instructions Encounter Date Encounter Id Patient Instructions Last Modified By Organization Details Last Modified Time 05/02/2023 [id number] A healthy lifestyle: care instructions jennifer Not available 05/02/2023 17:07:05 09/27/2023 [id number] A healthy lifestyle: care instructions jnanney Not available 09/27/2023 12:14:15 learning about high blood pressure jnanney Not available 09/27/2023 12:14:15 01/27/2024 [id number] A healthy lifestyle: care instructions jnanney Not available 01/27/2024 15:41:42 learning about high blood pressure jnanney Not available 01/27/2024 15:41:42 05/16/2024 [id number] A healthy lifestyle: care instructions jnanney Not available 05/16/2024 11:36:54 learning about high blood pressure jnanney Not available 05/16/2024 11:36:54 08/22/2024 [id number] A healthy lifestyle: care instructions jnanney Not available 08/22/2024 11:05:35 learning about high blood pressure jnanney Not available 08/22/2024 11:05:35 Reason for Referral None Reported. Results Created Date Observation Date Name Description Value Unit Range Abnormal Flag Note LastModifiedBy Organization Detail LastModifiedTime 08/18/19 24 08/18/2023 INR, blood PT/INR Not Available [facility] [address], [place], [address], 08/18/2023 16:46:39 Result Notes None recorded. Problems Name Problem SNOMED Code Status Onset Date Resolution Date Notes Provider Name and Address Organization Details Recorded Time History of cerebrovasc ular accident 407251194 Completed 201711/27/2020 Judah Duque PA-C Attn: Carolina ariza,[address] [place], [address], [facility] 10:44:37 Moderate chronic obstructive pulmonary disease 096047818 Active 2020 Judah Duque PA-C Attn: Carolina ariza,[address] [place], [address], [facility] 10:43:54 Essential hypertensio n 14515535 Active 2020 Judah Duque PA-C Attn: Carolina ariza,[address] [place], [address], [facility] 1 10:44:08 Mild chronic obstructive pulmonary disease 754521306 Active 2020 Judah Duque PA-C Attn: Carolina ariza,[address], [place], [address], [facility] 1 10:44:56 Lumbar radiculopat hy 515872360 Active 2021 Judah Duque PA-C Attn: Carolina ariza,[address], [place], [address], [facility] 2 15:22:20 Notes:Some problems listed i n Documents: #[id number], #[id number] could not be added to this patient's chart. Please review these documents and add these problems to the patient's chart manually as needed. Problem Notes None recorded. Procedures Surgical History Date Name Laterality Status Provider Name and Address Organization Details Recorded Time 04/25/19 19 Date of Last Mammogram completed Isamar Esquivel MA [facility] 11/30/2021 14:51:56 04/25/19 18 colonoscopy completed Mary Chavis MA [facility] 05/09/2020 10:16:55 Appendectomy completed Keyonna Fierro MA [facility] 11/16/2017 12:02:02 Tubal Ligation completed Keyonna Fierro MA [facility] 11/16/2017 12:02:08 Imaging Results None recorded. Procedure [...] TABLET BY MOUTH THREE TIMES A DAY 03/29 completed Not Available Not Available Not Available hydrocodone 5 mg-acetamin ophen 325 mg tablet take 1 tablet twice daily 11/16 completed Not Available Not Available Not Available atenolol 25 mg tablet 11/16 completed Not Available Not Available Not Available acetaminoph en 300 mg-codeine 30 mg tablet TAKE 1 TABLET BY MOUTH THREE TIMES DAILY NEEDED active Not Available Not Available No t Available tramadol 50 mg tablet Take 1 tablet [...] Available Not Available warfarin 3 mg tablet Take 1 tablet by mouth once daily 2024 active Not Available Not Available Not Avai lable pravastatin 80 mg tablet TAKE 1 TABLET BY MOUTH ONCE DAILY AT BEDTIME *NEEDS APPT BEFORE NEXT REFILL 2024 active Not Available Not Available Not Avai lable gabapentin 800 mg tablet TAKE 1 TABLET BY MOUTH THREE TIMES DAILY 2024 active Not Available Not Available Not Avai lable baclofen 10 mg tablet TAKE 1 TABLET BY MOUTH 4 TIMES DAILY NEEDED 2024 active Not Available Not Available Not Avai lable cephalexin 500 mg capsule 11/27 completed Not Available Not Available Not Available gabapentin 300 mg capsule TAKE 1 CAPSULE BY MOUTH THREE TIMES A DAY 11/30 completed Not Available Not Available Not Available omeprazole 20 mg capsule,del ayed release Take 1 capsule by mouth once daily 2024 active Not Available Not Available Not Avai lable montelukast 10 mg tablet Take 1 tablet by mouth once daily 2024 active Not Available Not Available Not Avai lable gabapentin 100 mg capsule TAKE 1 CAPSULE [...] Available Not Available atenolol 50 mg tablet Take 1 tablet by mouth once daily 2024 active Not Available Not Available Not Avai lable metronidazo le 1 % topical gel APPLY TO FACE DAILY DIRECTED active Not Available Not Available No t Available Vitals Date Recorded Body height Body mass index (BMI) Body weight Oxygen saturation Heart rate Systolic And Diastolic Provider Name and Address Organization Details Last Updated DateTime 4 170.18 cm 34.9 kg/m2 918070. 1 g 98 % 54 /min 164/83 mm[Hg] Mary Chavis MA [facility] 4 16:47:47 Date Recorded Body height Body mass index (BMI) Body weight Oxygen saturation Heart rate Systolic And Diastolic Provider Name and Address Organization Details Last Updated DateTime 5 170.18 cm 32.9 kg/m2 48997.4 g 98 % 70 /min 104/76 mm[Hg] Mary Chavis MA [facility] 5 11:26:14 Date Recorded Body height Body mass index (BMI) Body weight Oxygen saturation Heart rate Respiratory rate Systolic And Diastolic Provider Name and Address Organization Details Last Updated DateTime 5 170.18 cm 33 kg/m2 28388.8 3 g 96 % 74 /min 16 /min 108/74 mm[Hg] July Torres MA [facility] 5 10:53:57 Date Recorded Body height Oxygen saturation Heart rate Body mass index (BMI) Body weight Systolic And Diastolic Provider Name and Address Organization Details Last Updated DateTime 4 170.18 cm 96 % 61 /min 35.4 kg/m2 627242. 88 g 118/66 mm[Hg] Tia Rodriguez MA [facility] 4 11:57:44 Date Recorded Body height Body mass index (BMI) Body weight Oxygen saturation Heart rate Systolic And Diastolic Provider Name and Address Organization Details Last Updated DateTime 4 170.18 cm 33.8 kg/m2 36113.9 5 g 96 % 73 /min 114/75 mm[Hg] Tia Rodriguez MA [facility] 4 15:23:44 Social History Question Answer Notes LastModified by Organizat ion Details LastModified Time Tobacco Smoking Status Former Smoker Keyonna Fierro MA [facility], [facility] 11/16/2017 12:01:38 Are You Blind Or Do You Have Difficulty Seeing? No Information n ot available 11/27/2020 What Is Your Level Of Caffeine Consumption? Moderate Information not available 05/09/2020 How Much Tobacco Do You Chew? None Information not available 05/09/2020 In The 14 Days Before Symptom Onset, Have You Had Close Contact With A Laboratory-confirm ed COVID-19 While That Case Was Ill? No Information n ot available 11/27/2020 In The 14 Days Before [...] Of Diet Are You Following? REGULAR Information n ot available 05/09/2020 Which Illicit Or Recreational Drugs Have You Used? None Information not available 05/09/2020 Are There Any Guns Present In Your Home? No Information not available 11/27/2020 Marital Status Single Informatio n not available 05/09/2020 What Was The Date Of Your Most Recent Tobacco Screening? 08/22/2024 Information not available 08/22/2024 What Is Your Relationship Status? Single Information not available 11/27/2020 Do You Use Your Seat Belt Or Car Seat Routinely? Yes Information not available 11/27/2020 Do You Have Smoke And Carbon Monoxide Detectors In Your Home? Yes Information not available 11/27/2020 Are You Passively Exposed To Smoke? No Information no t available 11/27/2020 How Much Tobacco Do You Smoke? 2 PPD Information not available 11/16/2017 General Stress Level Low Information not available 05/09/2020 Has Tobacco Cessation Counseling Been Provided? No Information not available 06/12/2021 On What Date Was Tobacco Cessation Counseling Provided? 08/22/2024 Information not available 08/22/2024 How Many Years Have You Smoked Tobacco? 45 Information not available 11/16/2017 Sex: Female Functional Status Question Answer Note LastModified by Organizat ion Details LastModified Time Do you use any illicit or recreational drugs? No Information not available 11/27/2020 Do you or have you ever used any other forms of tobacco or nicotine? No Information not available 06/12/2021 What is your level of alcohol consumption? None Information not available 05/09/2020 Do you or have you ever used smokeless tobacco? Never used smokeless tobacco Information not available 05/09/2020 Are you currently employed? No Information not available 11/27/2020 Are you able to care for yourself independently? Yes Information not available 11/27/2020 Do you or have you ever used e-cigarettes or vape? Never used electronic cigarettes Information not available 05/09/2020 Mental Status Question Answer Note LastModified by Organization D etails LastModified Time Do you feel stressed (tense, restless, nervous, or anxious, or unable to sleep at night)? [id number] [email or web address] Information not available 11/27/2020 Family History Relationship Description Onset Age of this Age Resolved Age Notes LastModified by Organization Details LastModified Time Mother Blood coagulation disorder [email or web address] Not available 10/24 11:59:54 Mother Malignant neoplasm of breast [email or web address] Not available 10/24 12:00:05 [...] virus, quadrivalent, preservative 9 completed Not Available [facility] 12/08/2022 11:09:47 Influenza, split virus, quadrivalent, preservative 0 completed Not Available [facility] 12/08/2022 11:09:47 Influenza, split virus, quadrivalent, preservative 1 completed Tanika Titus [place], [place] [facility] 01/02/2021 12:25:24 zoster recombinant 2 completed NISH Resendiz, [place] [facility] 12/08/2022 09:44:26 influenza, intradermal, quadrivalent, preservative free 2 completed Not Available [facility] 12/08/2022 11:09:47 zoster recombinant 2 completed NISH [...] 09:44:27 Pneumococcal conjugate PCV 13 8 completed NISH Resendiz, [place] [facility] [...] 12/08/2022 09:44:27 Hep A, adult 0 completed Mary Chavis [place], [place] [facility] 12/08/2022 09:44:27 Hep A, adult 0 completed Mary Chavis [place], [place] [...] [place] [facility] 01/27/2024 11:29:50 Influenza, adjuvanted, trivalent, PF 5 completed Mary Chavis [place] [facility] 12/28/2024 09:03:19 Tdap 5 completed Mary Chavis [place] [facility] 02/14/2025 12:44:47 COVID-19, mRNA, LNP-S, bivalent, PF, 10 mcg/0.2 mL 5 completed Mary Chavis [place] [facility] 02/14/2025 12:45:33 COVID-19, mRNA, LNP-S, PF, 100 mcg/0.5mL dose or 50 mcg/0.25mL dose 1 completed Ely Cook Yadiel [place], [place] [facility] 07/07/2020 15:53:28 COVID-19, [...] Diagnosis SNOMED-CT Code Diagnosis ICD10 Code Diagnosis IMO Codes Diagnosis Note [id number] Jorge Dumont MD [facility] [address] [place] [address] 11/16/2017 11:54:35 11/16/2017 12:51:43 Screening for malignant neoplasm of breast 647088194 Z12.31 Screening for malignant neoplasm of colon 705375088 Z12.11 Essential hypertension 01517625 I10 Pain of ri ght hip joint 9974817451 11530 M25.551 Cerebrovas cular accident 993593248 I63.9 [id number] Jorge Dumont MD [facility] [address] [place] [address] 11/23/2017 10:25:58 11/23/2017 12:09:12 History of cerebrovascular accident 689472862 Z86.73 Essential hypertension 35171636 I10 [id number] Jorge Dumont MD [facility] [address] [place] [address] 12/20/2017 10:48:06 12/20/2017 12:56:23 History of cerebrovascular accident 887777855 Z86.73 [id number] Judah Duque PA-C [facility] [address] [place] [address] 01/24/2018 09:55:06 01/24/2018 10:32:49 History of cerebrovascular accident 450517513 Z86.73 [id number] Judah Duque PA-C [facility] [address] [place] [address] 02/24/2018 09:50:40 02/27/2018 16:01:09 History of cerebrovascular accident 435176100 Z86.73 [id number] uJdah Duque PA-C [facility] [address] [place] [address] 03/27/2018 10:20:36 03/27/2018 11:23:25 History of cerebrovascular accident 947045578 Z86.73 [id number] Judah Duque PA-C [facility] [address] [place] [address] 05/01/2018 10:16:10 05/01/2018 11:46:31 History of cerebrovascular accident 620549411 Z86.73 [id number] Judah Duque PA-C [facility] [address] [place] [address] 05/26/2018 10:23:51 05/26/2018 11:54:36 History of cerebrovascular accident 486839368 Z86.73 [id number] Judah Duque PA-C [facility] [address] [place] [address] 05/29/2018 15:35:45 05/29/2018 16:39:52 Seasonal allergy 164642944 J30.2 Essential hypertension 36902540 I10 History of cerebrovascular accident 560629446 Z86.73 Gastroesop hageal reflux disease without esophagitis 193752803 K21.9 Lumbar radiculopathy 128 110984 M54.16 [id number] OSVALDO Mojica [address] [place] [address] 07/21/2018 09:45:00 07/21/2018 11:38:09 History of cerebrovascular accident 838534345 Z86.73 [id number] OSVALDO Mojica [facility] [address] [place] [address] 08/23/2018 10:15:13 08/23/2018 16:42:43 History of cerebrovascular accident 037465869 Z86.73 [id number] OSVALDO Mojica [facility] [address] [place] [address] 10/03/2018 10:01:23 10/03/2018 14:04:28 History of cerebrovascular accident 970835078 Z86.73 [id number] Judah Duque PA-C [facility] [address] [place] [address] 10/19/2018 14:58:02 10/19/2018 16:12:24 History of cerebrovascular accident 802014243 Z86.73 Malignant neoplasm of lung 190450428 C34.11 Hyperglycemia 17933108 R 73.9 [id number] Judah Duque PA-C [facility] [address] [place] [address] 11/20/2018 10:17:33 11/20/2018 15:23:06 History of cerebrovascular accident 856689578 Z86.73 [id number] Judah Duque PA-C [facility] [address] [place] [address] 12/21/2018 10:23:50 12/21/2018 13:27:26 History of cerebrovascular accident 189648102 Z86.73 [id number] Judah Duuqe PA-C [facility] [address] [place] [address] 01/03/2019 10:16:36 01/03/2019 16:41:26 History of cerebrovascular accident 594258388 Z86.73 [facility] 87373704 E78.5 [id number] Judah Duque PA-C [facility] [address] [place] [address] 02/06/2019 11:03:35 02/06/2019 14:13:56 History of cerebrovascular accident 900722878 Z86.73 [id number] OSVALDO Mojica [facility] [address] [place] [address] 03/08/2019 11:11:22 03/08/2019 15:16:01 History of cerebrovascular accident 093934716 Z86.73 [id number] OSVALDO Mojica [facility] [address] [place] [address] 03/19/2019 10:31:44 03/19/2019 12:49:11 History of cerebrovascular accident 647490810 Z86.73 [id number] Judah Duque PA-C [facility] [address] [place] [address] 04/27/2019 10:58:34 04/27/2019 13:43:23 History of cerebrovascular accident 724982823 Z86.73 [id number] Judah Duque PA-C [facility] [address] [place] [address] 05/02/2019 10:38:26 05/02/2019 11:28:07 History of cerebrovascular accident 608353741 Z86.73 [id number] Judah Duque PA-C [facility] [address] [place] [address] 05/09/2019 10:31:16 05/09/2019 11:49:37 History of cerebrovascular accident 271060928 Z86.73 [id number] Judah Duque PA-C [facility] [address] [place] [address] 05/16/2019 09:50:50 05/16/2019 11:14:23 History of cerebrovascular accident 593404530 Z86.73 [id number] Judah Duque PA-C [facility] [address] [place] [address] 06/21/2019 10:23:42 06/21/2019 12:24:16 CVA - cerebrovascular accident due to cerebral artery occlusion 274703028 I63.312 Cramp in lower limb 4499 82249 R25.2 Essential hypertension 92259222 I10 Lumbar radiculopathy 128 868099 M54.16 Seasonal allergy 7663131 04 J30.2 [id number] OSVALDO Mojica [facility] [address] [place] [address] 07/30/2019 10:58:38 07/30/2019 12:21:06 Cerebrovascular accident 800011279 I63.9 [id number] OSVALDO Mojica [address] [place] [address] 08/28/2019 10:15:20 08/29/2019 12:41:57 History of cerebrovascular accident 858800633 Z86.73 [id number] Judah Duque PA-C [facility] [address] [place] [address] 10/12/2019 11:11:19 10/15/2019 08:19:27 History of cerebrovascular accident 129547687 Z86.73 [id number] Judah Duque PA-C [facility] [address] [place] [address] 12/13/2019 10:08:51 12/13/2019 12:28:00 History of cerebrovascular accident 159703938 Z86.73 [id number] Judah Duque PA-C [facility] [address] [place] [address] 12/27/2019 10:02:36 12/27/2019 11:29:22 History of cerebrovascular accident 022958150 Z86.73 Essential hypertension 68519848 I10 Seasonal allergy 9679878 04 J30.2 Lumbar radiculopathy 128 383042 M54.16 [id number] Jorge Dumont MD [facility] [address] [place] [address] 05/09/2020 10:08:29 05/13/2020 06:17:15 History of cerebrovascular accident 667989326 Z86.73 Urinary tr act infectious disease 00369081 N10 Family his tory of malignant neoplasm of urinary bladder 591489187 Z80.52 Lumbar radiculopathy 128 198499 M54.16 [id number] MD Kavita Haider [address] [facility] [place] [address] 07/07/2020 14:58:37 07/08/2020 10:28:02 Administration of SARS-CoV-2 antigen vaccine 220375086 Z23 [id number] MD Kavita Haider [address] [facility] [place] [address] 08/04/2020 15:02:57 08/05/2020 13:12:38 Administration of SARS-CoV-2 antigen vaccine 864678264 Z23 [id number] Judah Duque PA-C [facility] [address] [place] [address] 11/27/2020 10:22:36 12/02/2020 10:13:58 Body mass index 30+ - obesity 119069456 Z68.38 Essential hypertension 71673598 I10 Moderate c hronic obstructive pulmonary disease 352231769 J41.0 History of cerebrovascular accident 919724083 Z86.73 Weakness of right leg 15 17758248 2794015 G83.11 [id number] Jorge Dumont MD [facility] [address] [place] [address] 12/31/2020 17:01:00 01/01/2021 13:41:13 Superficial laceration of thumb 314368021 S61.011A [id number] Judah Duque PA-C [facility] [address] [place] [address] 03/17/2021 11:52:23 03/17/2021 12:05:14 Administration of SARS-CoV-2 mRNA vaccine 2556360888 Z23 [id number] Jorge Dumont MD [facility] [address] [place] [address] 06/12/2021 14:54:06 06/12/2021 15:35:22 History of cerebrovascular accident 638029497 Z86.73 Lumbar radiculopathy 128 718916 M54.16 Pain of ri ght shoulder joint 5877051063 7860954 M25.640 [id number] Jorge Dumont MD [facility] [address] [place] [address] 06/19/2021 10:52:27 06/19/2021 11:31:44 Essential hypertension 07330142 I10 Lumbar radiculopathy 128 631763 M54.16 Mild chron ic obstructive pulmonary disease 605248648 J40 Pain of ri ght shoulder joint 8306074277 6570380 M25.511 Anti-nucle ar factor detected 100299934 R76.8 [id number] Judah Duque PA-C [facility] [address] [place] [address] 11/30/2021 14:38:07 11/30/2021 15:43:55 Allergic conjunctivitis 560360837 H10.11 [id number] Judah Duque PA-C [facility] [address] [place] [address] 03/08/2022 15:14:45 03/08/2022 15:42:26 Lumbar radiculopathy 374440708 M54.16 Mild chron ic obstructive pulmonary disease 462126094 J40 Coronary arteriosclerosis 92494324 I25.10 [id number] Judah Duque PA-C [facility] [address] [place] [address] 07/07/2022 10:34:07 07/14/2022 11:04:49 Lumbar radiculopathy 314517766 M54.16 Essential hypertension 06240481 I10 Multiple skin tags 88401 7009 L91.8 Overweight 601935141 E66 .3 [id number] Jorge Dumont MD [facility] [address] [place] [address] 12/08/2022 11:08:27 12/09/2022 10:57:33 Long-term drug therapy 490964881 Z79.899 History of cerebrovascular accident 493375032 Z86.73 Essential hypertension 04993098 I10 [id number] Judah Duque PA-C [facility] [address] [place] [address] 05/02/2023 16:37:24 05/03/2023 11:59:29 Essential hypertension 91892349 I10 Lumbar radiculopathy 128 824834 M54.16 Overweight 487499050 E66 .3 History of cerebrovascular accident 776575706 Z86.73 [id number] Jorge Dumont MD [facility] [address] [place] [address] 09/27/2023 11:35:19 09/28/2023 12:38:50 Lumbar radiculopathy 938847843 M54.16 Moderate c hronic obstructive pulmonary disease 188475455 J41.0 Essential hypertension 76178158 I10 Overweight 650351809 E66 .3 [id number] Judah Duque PA-C [facility] [address] [place] [address] 01/27/2024 15:13:29 02/02/2024 13:09:12 Lumbar radiculopathy 461646464 M54.16 Essential hypertension 67458728 I10 Overweight 362952084 E66 .3 [id number] Jorge Dumont MD [facility] [address] [place] [address] 05/16/2024 10:55:35 05/21/2024 11:54:54 Lumbar radiculopathy 461585265 M54.16 History of cerebrovascular accident 515139724 Z86.73 Overweight 698963813 E66 .3 Essential hypertension 97777334 I10 [id number] Jorge Dumont MD [facility] [address] [place] [address] 08/22/2024 10:46:45 08/23/2024 13:22:17 Essential hypertension 26416700 I10 18955 BP is great recheck in 6 months Mixed hyperlipidemia 267 924889 E78.2 21977 History of cerebrovascular accident 148910617 Z86.73 [id number] if headache returns come straight in to office do not worry about appointmen t Obese class II 499779781 1 96877 E66.812 21673240 Health Concerns Section Related Observation LastModified by Organization Detai ls LastModified Time None Recorded Concern Status LastModified by Organization Details LastModified Time None Recorded Advance Directives Directive None Recorded Payers Insurance Date Sequence Insurance Name Policy Number Policy Huggins Covered Member ID Huggins Member ID Guarantor Name 05/16/2024 1 [place] Melvi Mascorro [id number] Melvi Mascorro 05/16/2024 [place] [facility] Melvi Ludwin [id number] Melvi Mascorro 05/16/2024 2 [employer] (MEDICARE SUPPLEMENT) Melvi Mascorro [id number] Melvi Mascorro 07/05/2018 2 UNSPECIFIED REMIT PAYOR Melvi Mascorro 05/16/2024 [place] [facility] Melvi Mascorro [id number] Melvi Mascorro 06/17/2018 2 UNSPECIFIED REMIT PAYOR Melvi Mascorro 08/23/2024 1 [facility] (MEDICARE REPLACEMENT/AD VANTAGE - HMO) [id number] Melvi Mascorro [id number] Melvi Mascorro Notes Date Note Type Note Provider Name and Address Organization Details Recorded Time 05/02/2023 text/html ROS as noted in the HPI 3 month vs controls all is well...needs labs Judah Duque PA-C Attn: Accounting,[address] [facility], [place], [place], [address] [place] [address], [place] [facility] 05/02/2023 17:07:52 09/27/2023 text/html ROS as noted in the HPI 3 month vs controls...also trouble with rt ear...wax? Judah Duque PA-C Attn: Accounting,[address] [facility], [place], [place], [address] [place] [address], [place] [facility] 09/27/2023 12:15:24 01/27/2024 text/html ROS as noted in the HPI htn and lumbar radiculopathy.. .hx of cva..all is well Judah Duque PA-C Attn: Accounting,[address] [facility], [place], [place], [address] [place] [address], [place] [facility] 01/27/2024 15:42:11 05/16/2024 text/html ROS as noted in the HPI 3 month vs control...all is well... Judah Duque PA-C Attn: Accounting,[address] [facility], [place], [place], [address] [place] [address], [place] [facility] 05/16/2024 11:38:03 08/22/2024 text/html ROS as noted in the HPI 3 month vs tylenol 3...things are well and pain is controlled...bl ood pressure is good..hx of cva..rt side affected..was sick in June with headache dizzy says covid was negative... Judah Duque PA-C Attn: Accounting,[address] [facility], [place], [place], [address] [place] [address], [place] [facility] 08/22/2024 11:06:03 OBGyn Episode No OBEpisode recorded.
[2025-03-15 17:33] VITALS: BP 132/85; PULSE 61; RESP 18; O2SAT 97
== END 2025-03-15 17:44 | disposition home or self-care (01) ==
LOC: CHSED 16:41
PROVIDERS: Emergency Provider Emergency Medicine; PCP Physician Assistant
DX: S82.891A Other fracture of right lower leg, initial encounter for closed fracture (principal); Z79.899 Other long term (current) drug therapy; Z85.118 Personal history of other malignant neoplasm of bronchus and lung; V27.09XA Other motorcycle driver injured in collision with fixed or stationary object in nontraffic accident, initial encounter
CPT/HCPCS: 29515; 73610; 73630; 99284

== ENCOUNTER 2025-04-11 11:24 | Outpatient (CLI) | payer MEDICARE, SELFPAY ==
--- NOTE | ~2025-04-11 | MM_ITS ---
EXAMINATION: MM scrn pedrito implant BI w sina HISTORY: Screening TECHNIQUE: Craniocaudal and mediolateral oblique 3-D tomosynthesis images were obtained and synthetic 2-D images were generated. CAD analysis was submitted and interpreted. Left breast augmentation with silicone implant. COMPARISON: None provided BREAST PARENCHYMAL COMPOSITION: Not Dense: There are scattered areas of fibroglandular density. FINDINGS: There is no evidence of suspicious mass, calcification, or architectural distortion to suggest malignancy in either breast. Left retropectoral silicone implants appears intact. IMPRESSION: 1. No mammographic evidence of malignancy. 2. Left retropectoral silicone implant appears intact. 3. Recommend routine screening mammography in one year. BI-RADS Category 1: Negative Reviewed, dictated and finalized at location A. RACT ASSOCIATE MANAGER
[2025-04-11 11:59] LABS: INR 4.1; Prothrombin Time 39.9 Seconds (9.50-12.1)
--- OUTSIDE RECORDS SUMMARY | 2025-04-11 12:42 | XMS_ITS | Data Portability ---
Author Organization [facility] Address [address] [place] [address] Care Team Providers Care Senior Software Architect Name Role Phone JUDAH DUQUE Primary Care Provider [phone] Assessment No assessment recorded. Plan of Treatment Reminders Order Date Submit Date Provider Last Modified By Organization Details Last Modified Time Details Appointments None recorded. Lab CBC 2024 025 [facility], [address] [facility] [address], [address], 5 15:44:56 CMP, serum or plasma 2024 025 [facility], [address] [facility] [address], [address], 5 15:44:56 lipid panel, serum 2024 025 [email or web address] [facility], [address] [facility], [place], [address], 5 12:35:03 HbA1c (hemoglobi n A1c), blood 2024 025 [facility], [address] [facility], [place], [address], 5 16:39:33 CBC 2023 024 [facility], [address] [facility], [facility], [place], [address], 4 23:23:31 CMP, serum or plasma 2023 024 [facility], [address] [facility], [facility], [place], [address], 23:23:31 lipid panel, serum 2023 024 [facility], [address] [facility], [facility], [place], [address], 23:23:31 HbA1c (hemoglobi n A1c), blood 2023 024 [facility], [address] [facility], [facility], [place], [address], 23:23:31 Referral None recorded. Procedures None recorded. Surgeries None recorded. Imaging None recorded. Medication Orders acetaminop hen 300 mg-codeine 30 mg tablet 2023 [facility] [address] [place], [address], 15:41:48 gabapentin 800 mg tablet 2023 [facility] [address] [place], [address], 4 17:06:23 acetaminop hen 300 mg-codeine 30 mg tablet 2023 [facility] [address] [place], [address], 4 17:06:25 pravastati n 80 mg tablet 2023 024 [facility] [address] [place], [address], 4 17:06:22 Patient TargetsNo targets recorded. Patient Instructions Encounter Date Encounter Id Patient Instructions Last Modified By Organization Details Last Modified Time 05/02/2023 [id number] A healthy lifestyle: care instructions jennifer Not available 05/02/2023 17:07:05 09/27/2023 [id number] A healthy lifestyle: care instructions jnanney Not available 09/27/2023 12:14:15 learning about high blood pressure jnanney Not available 09/27/2023 12:14:15 01/27/2024 [id number] A healthy lifestyle: care instructions jnanney Not available 01/27/2024 15:41:42 learning about high blood pressure jnanney Not available 01/27/2024 15:41:42 05/16/2024 [id number] A healthy lifestyle: care instructions jnanney Not available 05/16/2024 11:36:54 learning about high blood pressure jnanney Not available 05/16/2024 11:36:54 08/22/2024 [id number] A healthy lifestyle: care instructions jnanney Not available 08/22/2024 11:05:35 learning about high blood pressure jnanney Not available 08/22/2024 11:05:35 Reason for Referral None Reported. Results Created Date Observation Date Name Description Value Unit Range Abnormal Flag Note LastModifiedBy Organization Detail LastModifiedTime 08/18/19 24 08/18/2023 INR, blood PT/INR Not Available [facility] [address], [address], 08/18/2023 16:46:39 03/15/20 25 03/15/2025 XR, ankle + foot No observ ation [facility] [address] [place], [address], 03/18/2025 09:14:06 03/15/20 25 03/15/2025 XR, ankle + foot No observ ation record [facility] [address] [place], [address], 03/18/2025 09:14:14 Result Notes None recorded. Problems Name Problem SNOMED Code Status Onset Date Resolution Date Notes Provider Name and Address Organization Details Recorded Time History of cerebrovasc ular accident 652661089 Completed 201711/27/2020 Judah Duque PA-C Attn: Carolina g [facility], [place], [address], [place] [facility] 1 10:44:37 Moderate chronic obstructive pulmonary disease 472471361 Active 2020 Judah Duque PA-C Attn: Carolina ariza,[address] [facility], [place], [address], [place] [facility] 1 10:43:54 Essential hypertensio n 53282247 Active 2020 Judah Duque PA-C Attn: Carolina ariza,[address] [facility], [place], [address], [place] [facility] 1 10:44:08 Mild chronic obstructive pulmonary disease 882891537 Active 2020 Judah Duque PA-C Attn: Carolina ariza,[address] [facility], [place], [address], [place] [facility] 1 10:44:56 Lumbar radiculopat hy 188969228 Active 2021 Judah Duque PA-C Attn: Carolina ariza,[address] [facility], [place], [address], [place] [facility] 2 15:22:20 Notes:Some problems listed i n Documents: #[id number], #[id number] could not be added to this patient's chart. Please review these documents and add these problems to the patient's chart manually as needed. Problem Notes None recorded. Procedures Surgical History Date Name Laterality Status Provider Name and Address Organization Details Recorded Time 04/25/19 19 Date of Last Mammogram completed Isamar Esquivel MA [facility] 11/30/2021 14:51:56 04/25/19 18 colonoscopy completed Mary Chavis [place] [facility] 05/09/2020 10:16:55 Appendectomy completed Keyonna Fierro MA [facility] 11/16/2017 12:02:02 Tubal Ligation completed Keyonna Fierro MA [facility] 11/16/2017 12:02:08 Imaging Results None recorded. Procedure [...] Updated DateTime 4 170.18 cm 34.9 kg/m2 379877. 1 g 98 % 54 /min 164/83 mm[Hg] Mary Chavis MA [facility] 4 16:47:47 Date Recorded Body height Body mass index (BMI) Body weight Oxygen saturation Heart rate Systolic And Diastolic Provider Name and Address Organization Details Last Updated DateTime 5 170.18 cm 32.9 kg/m2 15554.4 g 98 % 70 /min 104/76 mm[Hg] Mary Chavis MA [facility] 5 11:26:14 Date Recorded Body height Body mass index (BMI) Body weight Oxygen saturation Heart rate Respiratory rate Systolic And Diastolic Provider Name and Address Organization Details Last Updated DateTime 5 170.18 cm 33 kg/m2 47384.8 3 g 96 % 74 /min 16 /min 108/74 mm[Hg] July Torres MA [facility] 5 10:53:57 Date Recorded Body height Oxygen saturation Heart rate Body mass index (BMI) Body weight Systolic And Diastolic Provider Name and Address Organization Details Last Updated DateTime 4 170.18 cm 96 % 61 /min 35.4 kg/m2 610180. 88 g 118/66 mm[Hg] Tia Rodriguez MA [facility] 4 11:57:44 Date Recorded Body height Body mass index (BMI) Body weight Oxygen saturation Heart rate Systolic And Diastolic Provider Name and Address Organization Details Last Updated DateTime 4 170.18 cm 33.8 kg/m2 54210.9 5 g 96 % 73 /min 114/75 mm[Hg] Tia Rodriguez MA [facility] 4 15:23:44 Social History Question Answer Notes LastModified by Organizat ion Details LastModified Time Tobacco Smoking Status Former Smoker Keyonna Fierro MA null, [facility] 11/16/2017 12:01:38 Are You Blind Or Do [...] anxious, or unable to sleep at night)? [id number] Information not available 11/27/2020 Family History Relationship [...] quadrivalent, preservative 9 completed Not Available [facility] 12/08/2022 11:09:47 Influenza, split virus, quadrivalent, preservative 0 completed Not Available [facility] 12/08/2022 11:09:47 Influenza, split virus, quadrivalent, preservative 1 completed Tanika T[place], [place] [facility] 01/02/2021 12:25:24 zoster recombinant 2 completed NISH Resendiz, [place] [facility] 12/08/2022 09:44:26 influenza, intradermal, quadrivalent, preservative free 2 completed Not Available [facility] 12/08/2022 11:09:47 zoster recombinant 2 completed [...] Influenza, split virus, trivalent, PF 7 completed Mary Chavis [place] null, [place] - [...] ICD10 Code Diagnosis IMO Codes Diagnosis Note [id number] [facility] [address] [place] [address] 11/16/2017 11:54:35 11/16/2017 12:51:43 Screening for malignant neoplasm of breast 508819706 Z12.31 Screening for malignant neoplasm of colon 041771922 Z12.11 Essential hypertension 48186444 I10 Pain of ri ght hip joint 6513501383 24499 M25.551 Cerebrovas cular accident 117159266 I63.9 [id number] MD Kelsie Oh [facility] [address] [place] [address] 11/23/2017 10:25:58 11/23/2017 12:09:12 History of cerebrovascular accident 567630346 Z86.73 Essential hypertension 57151841 I10 [id number] Jorge Dumont MD [facility] [address] [place] [address] 12/20/2017 10:48:06 12/20/2017 12:56:23 History of cerebrovascular accident 901126781 Z86.73 [id number] Judah Duque PA-C [facility] [address] [place] [address] 01/24/2018 09:55:06 01/24/2018 10:32:49 History of cerebrovascular accident 598829823 Z86.73 [id number] Judah Duque PA-C [facility] [address] [place] [address] 02/24/2018 09:50:40 02/27/2018 16:01:09 History of cerebrovascular accident 926980912 Z86.73 [id number] Judah Duque PA-C [facility] [address] [place] [address] 03/27/2018 10:20:36 03/27/2018 11:23:25 History of cerebrovascular accident 428807338 Z86.73 [id number] Judah Duque PA-C [facility] [address] [place] [address] 05/01/2018 10:16:10 05/01/2018 11:46:31 History of cerebrovascular accident 257208171 Z86.73 [id number] Judah Duque PA-C [facility] [address] [place] [address] 05/26/2018 10:23:51 05/26/2018 11:54:36 History of cerebrovascular accident 424073729 Z86.73 [id number] Judah Duque PA-C [facility] [address] [place] [address] 05/29/2018 15:35:45 05/29/2018 16:39:52 Seasonal allergy 625856769 J30.2 Essential hypertension 82972933 I10 History of cerebrovascular accident 206970495 Z86.73 Gastroesop hageal reflux disease without esophagitis 709866707 K21.9 Lumbar radiculopathy 128 765498 M54.16 [id number] Judah Duque PA-C [facility] [address] [place] [address] 07/21/2018 09:45:00 07/21/2018 11:38:09 History of cerebrovascular accident 609366120 Z86.73 [id number] Judah Duque PA-C [facility] [address] [place] [address] 08/23/2018 10:15:13 08/23/2018 16:42:43 History of cerebrovascular accident 520926845 Z86.73 [id number] Judah Duque PA-C [facility] [address] [place] [address] 10/03/2018 10:01:23 10/03/2018 14:04:28 History of cerebrovascular accident 397827372 Z86.73 [id number] Judah Duque PA-C [facility] [address] [place] [address] 10/19/2018 14:58:02 10/19/2018 16:12:24 History of cerebrovascular accident 732190076 Z86.73 Malignant neoplasm of lung 636623457 C34.11 Hyperglycemia 08058866 R 73.9 [id number] Judah Duque PA-C [facility] [address] [place] [address] 11/20/2018 10:17:33 11/20/2018 15:23:06 History of cerebrovascular accident 554829549 Z86.73 [id number] Judah Duque PA-C [facility] [address] [place] [address] 12/21/2018 10:23:50 12/21/2018 13:27:26 History of cerebrovascular accident 999486180 Z86.73 [id number] Judah Duque PA-C [facility] [address] [place] [address] 01/03/2019 10:16:36 01/03/2019 16:41:26 History of cerebrovascular accident 386480871 Z86.73 [facility] 45038567 E78.5 [id number] Judah Duque PA-C [facility] [address] [place] [address] 02/06/2019 11:03:35 02/06/2019 14:13:56 History of cerebrovascular accident 263105960 Z86.73 [id number] Judah Duque PA-C [facility] [address] [place] [address] 03/08/2019 11:11:22 03/08/2019 15:16:01 History of cerebrovascular accident 865347399 Z86.73 [id number] Judah Duque PA-C [facility] [address] [place] [address] 03/19/2019 10:31:44 03/19/2019 12:49:11 History of cerebrovascular accident 743333317 Z86.73 [id number] Judah Duque PA-C [facility] [address] [place] [address] 04/27/2019 10:58:34 04/27/2019 13:43:23 History of cerebrovascular accident 308775846 Z86.73 [id number] Judah Duque PA-C [facility] [address] [place] [address] 05/02/2019 10:38:26 05/02/2019 11:28:07 History of cerebrovascular accident 706279261 Z86.73 [id number] Judah Duque PA-C [facility] [address] [place] [address] 05/09/2019 10:31:16 05/09/2019 11:49:37 History of cerebrovascular accident 433321331 Z86.73 [id number] Judah Duque PA-C [facility] [address] [place] [address] 05/16/2019 09:50:50 05/16/2019 11:14:23 History of cerebrovascular accident 322171777 Z86.73 [id number] Judah Duque PA-C [facility] [address] [place] [address] 06/21/2019 10:23:42 06/21/2019 12:24:16 CVA - cerebrovascular accident due to cerebral artery occlusion 992888528 I63.312 Cramp in lower limb 4499 14419 R25.2 Essential hypertension 07283990 I10 Lumbar radiculopathy 128 145776 M54.16 Seasonal allergy 4485411 04 J30.2 [id number] Judah Duque PA-C [facility] [address] [place] [address] 07/30/2019 10:58:38 07/30/2019 12:21:06 Cerebrovascular accident 748902505 I63.9 [id number] Judah Duque PA-C [facility] [address] [place] [address] 08/28/2019 10:15:20 08/29/2019 12:41:57 History of cerebrovascular accident 968949662 Z86.73 [id number] Judah Duque PA-C [facility] [address] [place] [address] 10/12/2019 11:11:19 10/15/2019 08:19:27 History of cerebrovascular accident 060244478 Z86.73 [id number] Judah Duque PA-C [place] [address] [place] [address] 12/13/2019 10:08:51 12/13/2019 12:28:00 History of cerebrovascular accident 382590725 Z86.73 [id number] Judah Duque PA-C [facility] [address] [place] [address] 12/27/2019 10:02:36 12/27/2019 11:29:22 History of cerebrovascular accident 468669585 Z86.73 Essential hypertension 52423608 I10 Seasonal allergy 5709152 04 J30.2 Lumbar radiculopathy 128 762815 M54.16 [id number] Jorge Dumont MD [facility] [address] [place] [address] 05/09/2020 10:08:29 05/13/2020 06:17:15 History of cerebrovascular accident 236899018 Z86.73 Urinary tr act infectious disease 32669196 N10 Family his tory of malignant neoplasm of urinary bladder 545308939 Z80.52 Lumbar radiculopathy 128 321990 M54.16 [id number] MD Kavita Haider 14 IM 4 [facility] [place] [address] 07/07/2020 14:58:37 07/08/2020 10:28:02 Administration of SARS-CoV-2 antigen vaccine 103375131 Z23 [id number] MD Kavita Haider 14 IM 4 [facility] [place] [address] 08/04/2020 15:02:57 08/05/2020 13:12:38 Administration of SARS-CoV-2 antigen vaccine 726947533 Z23 [id number] Judah Duque PA-C [facility] [address] [place] [address] 11/27/2020 10:22:36 12/02/2020 10:13:58 Body mass index 30+ - obesity 463783950 Z68.38 Essential hypertension 30181177 I10 Moderate c hronic obstructive pulmonary disease 483365075 J41.0 History of cerebrovascular accident 248105965 Z86.73 Weakness of right leg 15 12593040 3499031 G83.11 [id number] Jorge Dumont MD [facility] [address] [place] [address] 12/31/2020 17:01:00 01/01/2021 13:41:13 Superficial laceration of thumb 538335144 S61.011A [id number] Judah Duque PA-C [facility] [address] [place] [address] 03/17/2021 11:52:23 03/17/2021 12:05:14 Administration of SARS-CoV-2 mRNA vaccine 8693209788 Z23 [id number] Jorge Dumont MD [facility] [address] [place] [address] 06/12/2021 14:54:06 06/12/2021 15:35:22 History of cerebrovascular accident 910092350 Z86.73 Lumbar radiculopathy 128 364355 M54.16 Pain of ri ght shoulder joint 9814414165 2395481 M25.019 [id number] Jorge Dumont MD [facility] [address] [place] [address] 06/19/2021 10:52:27 06/19/2021 11:31:44 Essential hypertension 25883695 I10 Lumbar radiculopathy 128 831155 M54.16 Mild chron ic obstructive pulmonary disease 517541540 J40 Pain of ri ght shoulder joint 0725118365 9187551 M25.511 Anti-nucle ar factor detected 409720623 R76.8 [id number] Judah Duque PA-C [facility] [address] [place] [address] 11/30/2021 14:38:07 11/30/2021 15:43:55 Allergic conjunctivitis 631260693 H10.11 [id number] Judah Duque PA-C [facility] [address] [place] [address] 03/08/2022 15:14:45 03/08/2022 15:42:26 Lumbar radiculopathy 470835449 M54.16 Mild chron ic obstructive pulmonary disease 397929113 J40 Coronary arteriosclerosis 86471712 I25.10 [id number] Judah Duque PA-C [facility] [address] [place] [address] 07/07/2022 10:34:07 07/14/2022 11:04:49 Lumbar radiculopathy 207240625 M54.16 Essential hypertension 08544375 I10 Multiple skin tags 48897 7009 L91.8 Overweight 235554530 E66 .3 [id number] Jorge Dumont MD [facility] [address] [place] [address] 12/08/2022 11:08:27 12/09/2022 10:57:33 Long-term drug therapy 680193408 Z79.899 History of cerebrovascular accident 834953202 Z86.73 Essential hypertension 45428813 I10 [id number] Judah Duque PA-C [facility] [address] [place] [address] 05/02/2023 16:37:24 05/03/2023 11:59:29 Essential hypertension 02686180 I10 Lumbar radiculopathy 128 287356 M54.16 Overweight 187908586 E66 .3 History of cerebrovascular accident 225918566 Z86.73 [id number] Jorge Dumont MD [facility] [address] [place] [address] 09/27/2023 11:35:19 09/28/2023 12:38:50 Lumbar radiculopathy 119263492 M54.16 Moderate c hronic obstructive pulmonary disease 252380117 J41.0 Essential hypertension 91439235 I10 Overweight 284832606 E66 .3 [id number] Judah Duque PA-C [facility] [address] [place] [address] 01/27/2024 15:13:29 02/02/2024 13:09:12 Lumbar radiculopathy 498390079 M54.16 Essential hypertension 67182836 I10 Overweight 896078899 E66 .3 [id number] Jorge Dumont MD [facility] [address] [place] [address] 05/16/2024 10:55:35 05/21/2024 11:54:54 Lumbar radiculopathy 694823466 M54.16 History of cerebrovascular accident 817559085 Z86.73 Overweight 696095060 E66 .3 Essential hypertension 85109204 I10 [id number] Jorge Dumont MD [facility] [address] [place] [address] 08/22/2024 10:46:45 08/23/2024 13:22:17 Essential hypertension 88257508 I10 93621 BP is great recheck in 6 months Mixed hyperlipidemia 267 066786 E78.2 45039 History of cerebrovascular accident 634959489 Z86.73 [id number] if headache returns come straight in to office do not worry about appointmen t Obese class II 099504567 1 [address] E66.812 [id number] Health Concerns Section Related Observation LastModified by Organization Detai ls LastModified Time None Recorded Concern Status LastModified by Organization Details LastModified Time None Recorded Advance Directives Directive None Recorded Payers Insurance Date Sequence Insurance Name Policy Number Policy Huggins Covered Member ID Huggins Member ID Guarantor Name 05/16/2024 1 [place] Melvi Loretta Mascorro [id number] Melvi Ludwin 05/16/2024 [place] [facility] Melvi Ludwin [id number] Melvi Ludwin 05/16/2024 2 [employer] (MEDICARE SUPPLEMENT) Melvi Mascorro [id number] Melvi Mascorro 07/05/2018 2 UNSPECIFIED REMIT PAYOR Melvi Mascorro 05/16/2024 [place] [facility] Melvi Mascorro [id number] Melvi Mascorro 06/17/2018 2 UNSPECIFIED REMIT PAYOR Melvi Mascorro 08/23/[address] [facility] (MEDICARE REPLACEMENT/AD VANTAGE - HMO) [id number] Melvi Mascorro [id number] Melvi Mascorro Notes Date Note Type Note Provider Name and Address Organization Details Recorded Time 05/02/2023 text/html ROS as noted in the HPI 3 month vs controls all is well...needs labs Judah Duque PA-C Attn: [address] [place], [place], [address] [place] [address], [place] [facility] 05/02/2023 17:07:52 09/27/2023 text/html ROS as noted in the HPI 3 month vs controls...also trouble with rt ear...wax? Judah Duque PA-C Attn: [address] [place], [address], [place] [facility] 09/27/2023 12:15:24 01/27/2024 text/html ROS as noted in the HPI htn and lumbar radiculopathy.. .hx of cva..all is well Judah Duque PA-C Attn: [address] [place], [place], [address] [place] [address], [place] [facility] 01/27/2024 15:42:11 05/16/2024 text/html ROS as noted in the HPI 3 month vs control...all is well... Judah Duque PA-C Attn: [address] [place], [address], [place] [facility] 05/16/2024 11:38:03 08/22/2024 text/html ROS as noted in the HPI 3 month vs tylenol 3...things are well and pain is controlled...bl ood pressure is good..hx of cva..rt side affected..was sick in June with headache dizzy says covid was negative... Judah Duque PA-C Attn: [address] [place], [address], [facility] 08/22/2024 11:06:03 OBGyn Episode No OBEpisode recorded.
--- OUTSIDE RECORDS SUMMARY | 2025-04-11 12:42 | XMS_ITS | Clinical Summary ---
Author Organization [facility] Address [address] [place] [address] Care Team Providers Care Education Spec Name Role Phone Jerry Duque Primary Care Provider [phone] Marco Robin MD Unavailable [phone] Allergies No known active allergies Medications omeprazole [...] her current medical management. 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
== END 2025-04-11 11:25 | disposition home or self-care (01) ==
PROVIDERS: PCP Physician Assistant; Visit Provider Physician Assistant
DX: I63.9 Cerebral infarction, unspecified (principal); Z12.31 Encounter for screening mammogram for malignant neoplasm of breast; Z86.73 Personal history of transient ischemic attack (TIA), and cerebral infarction without residual deficits
CPT/HCPCS: 36415; 77063; 77067; 85610